=== PATIENT | female | born 1975 | race Caucasian/White ===

== ENCOUNTER 2016-12-02 18:25 | Day surgery (SDC) | payer MEDICAID ==
[2016-12-02] MEDS ORDERED: HYDROmorphone 1 MG/ML Syringe IVPUSH ONE (18:48)
[2016-12-02] MEDS ORDERED: Sodium Chloride 0.9% 1,000 ML IV ONE (18:48)
[2016-12-02] MEDS ORDERED: Ondansetron 4 MG/2 ML SDV IVPUSH ONE (18:48)
[2016-12-02] MEDS ORDERED: Sodium Chloride 0.9% 10 ML Syringe FLUSH PRN ×2 (18:49→20:30)
--- NOTE | 2016-12-02 18:56 | EDM.PDOC ---
ED HPI GI/ABDOMINAL - General Chief Complaint: Abdominal Pain Stated Complaint: LOWER ABDOMINAL PAIN Time Seen by Provider: 12/02/16 18:55 Source of Information: Reports: Patient History Limitations: Reports: No limitations - History of Present Illness INITIAL COMMENTS - FREE TEXT/NARRATIVE: Presents for evaluation and treatment of right lower quadrant abdominal pain. Patient reports the symptoms began last night. She states that the pain has increased in severity. It is localized to the right lower quadrant. reports associated symptoms of nausea. Patient reports on her way to the ER the bumps in the road severely worsen the pain. Any movement makes the pain worse. The patient's LMP was about a week and half ago. Abdominal surgeries include a Location: RLQ - Related Data Allergies/ADRs: Allergies Allergy/AdvReac Type Severity Reaction Status Date / Time morphine Allergy Headache Verified 02/12/16 22:54 Past Medical History - Past Health History Medical/Surgical History: Denies Medical/Surgical History - Past Surgical History Female Surgical History: Reports: section Social & Family History - Family History Family Medical History: Noncontributory - Tobacco Use Smoking Status *Q: Current Every Day Smoker Years of Tobacco use: 20 Packs/Tins Daily: 1 - Recreational Drug Use Recreational Drug Use: No ED ROS GENERAL - Review of Systems Review Of Systems: See Below GI/Abdominal: Reports: Abdominal pain, Nausea ED EXAM, GI/ABD - Physical Exam Exam: See Below Exam Limited By: No limitations General Appearance: alert, WD/WN, moderate distress Respiratory/Chest: no respiratory distress, lungs clear, normal breath sounds Cardiovascular: normal peripheral pulses, no murmur, tachycardia GI/Abdominal: normal bowel sounds, tenderness, guarding, rebound, McBurney's sign Neurological: alert, oriented, normal cognition Psychiatric: normal affect, normal mood Skin Exam: Warm, Dry, Normal color Course - Vital Signs Last Recorded V/S: Last Vital Signs Temp 36.4 C 12/03/16 05:00 Pulse 62 12/03/16 05:00 Resp 16 12/03/16 05:00 BP 98/62 12/03/16 05:00 Pulse Ox 100 12/03/16 05:00 - Orders/Labs/Meds Orders: Active Orders 24 hr Category Date Time Status Patient Status [ADT] Routine ADT 12/02/16 23:01 Active Patient Status [ADT] Routine ADT 12/03/16 00:13 Active Antiembolic Devices [RC] PER UNIT ROUTINE Care 12/02/16 22:14 Active Communication Order [RC] ASDIRECTED Care 12/03/16 00:30 Active Communication Order [RC] ASDIRECTED Care 12/03/16 00:56 Active Communication Order [RC] ROUTINE Care 12/03/16 08:12 Active Communication Order [RC] STAT Care 12/02/16 22:13 Active Cooling Warming Measures [RC] ASDIRECTED Care 12/03/16 00:30 Active Notify Provider [RC] ASDIRECTED Care 12/03/16 00:30 Active Oxygen Therapy [RC] ASDIRECTED Care 12/03/16 00:30 Active Oxygen Therapy [RC] PRN Care 12/03/16 00:13 Active Patient to Empty Bladder [RC] ASDIRECTED Care 12/02/16 22:13 Active Peripheral IV Care [RC] . DIRECTED Care 12/02/16 18:49 Active Pulse Oximetry [RC] ASDIRECTED Care 12/03/16 00:30 Active Ready for Discharge [RC] PER UNIT ROUTINE Care 12/03/16 08:15 Active Up ad [place] [RC] ASDIRECTED Care 12/03/16 00:13 Active Verify Patient Consent Obtain [RC] ASDIRECTED Care 12/02/16 22:13 Active Vital Signs [RC] PER UNIT ROUTINE Care 12/03/16 00:13 Active Vital Signs [RC] Q1HR Care 12/03/16 00:30 Active Regular Diet [DIET] Diet 12/03/16 Breakfast Active Abdomen Pelvis w Cont [CT] Stat Exams 12/02/16 18:48 Taken Acetaminophen/HYDROcodone [[place] 325-5 MG] Med 12/03/16 00:13 Active 1 tab PO Q4H PRN HYDROmorphone [Dilaudid] Med 12/03/16 00:13 Active 0.5 mg IVPUSH Q1H PRN Ondansetron [Zofran] Med 12/03/16 00:13 Active 4 mg IVPUSH Q6H PRN Sodium Chloride 0.9% [Normal Saline] 1,000 ml Med 12/02/16 22:15 Active IV ASDIRECTED Sodium Chloride 0.9% [Normal Saline] 1,000 ml Med 12/03/16 00:15 Active IV ASDIRECTED Sodium Chloride 0.9% [Saline Flush] Med 12/02/16 18:49 Active 10 ml FLUSH ASDIRECTED PRN Sodium Chloride 0.9% [Saline Flush] Med 12/02/16 20:30 Active 10 ml FLUSH ONETIME PRN fentaNYL [Sublimaze] Med 12/03/16 00:31 Active 50 mcg IVPUSH Q5M PRN Peripheral IV Insertion Adult [OM.PC] Routine Oth 12/02/16 18:49 Ordered Schedule Procedure [COMM] Stat Oth 12/02/16 23:02 Ordered Sequential Compression Device [OM.PC] Routine Oth 12/02/16 22:13 Ordered Resuscitation Status Routine Resus Stat 12/02/16 22:13 Ordered Medication Orders Hydrocodone Bitart/Acetaminophen ([place] 325-5 Mg) 1 tab PO Q4H PRN PRN Reason: Pain (moderate 4-6) Last Admin: 12/03/16 11:10 Dose: 1 tab Fentanyl (Sublimaze) 50 mcg IVPUSH Q5M PRN PRN Reason: PAIN Last Admin: 12/03/16 00:20 Dose: 50 mcg Hydromorphone HCl (Dilaudid) 0.5 mg IVPUSH Q1H PRN PRN Reason: Pain (severe 7-10) Sodium Chloride (Normal Saline) 1,000 mls @ 125 mls/hr IV ASDIRECTED [facility] Last Admin: 12/02/16 23:19 Dose: 125 mls/hr Sodium Chloride (Normal Saline) 1,000 mls @ 125 mls/hr IV ASDIRECTED [facility] Ondansetron HCl (Zofran) 4 mg IVPUSH Q6H PRN PRN Reason: Nausea/Vomiting Sodium Chloride (Saline Flush) 10 ml FLUSH ASDIRECTED PRN PRN Reason: Keep Vein Open Last Admin: 12/02/16 19:26 Dose: 10 ml Sodium Chloride (Saline Flush) 10 ml FLUSH ONETIME PRN PRN Reason: IV FLUSH Last Admin: 12/02/16 21:01 Dose: 10 ml Labs: Laboratory Tests 12/02/16 12/02/16 12/02/16 Range/Units 19:00 19:00 19:00 WBC 18.06 H (3.98-10.04) K/mm3 RBC 4.72 (3.98-5.22) M/mm3 Hgb 13.7 (11.2-15.7) gm/L Hct 40.9 (34.1-44.9) % MCV 86.7 (79.4-94.8) fl MCH 29.0 (25.6-32.2) pg MCHC 33.5 (32.2-35.5) g/dl RDW Std Deviation 40.2 (36.4-46.3) fL Plt Count 310 (182-369) K/mm3 MPV 9.8 (9.4-12.3) fl Neutrophils % (Manual) 80 H (40-60) % Band Neutrophils % 0 (0-10) % Lymphocytes % (Manual) 15 L (20-40) % Atypical Lymphs % 0 % Monocytes % (Manual) 5 (2-10) % Eosinophils % (Manual) 0 L (0.7-5.8) % Basophils % (Manual) 0 L (0.1-1.2) Platelet Estimate Adequate Plt Morphology Comment Normal Anisocytosis 1+ slight Macrocytosis 1+ slight Tear Drop Cells 1+ slight Schistocytes 1+ slight RBC Morph Comment Abnormal Sodium 137 (136-145) mEq/L Potassium 3.7 (3.5-5.1) mEq/L Chloride 102 (98-107) mEq/L Carbon Dioxide 21 (21-32) mEq/L Anion Gap 17.7 H (5-15) BUN 14 (7-18) mg/dL Creatinine 0.8 (0.55-1.02) mg/dL Est Cr Clr Drug Dosing 88.38 mL/min Estimated GFR (MDRD) > 60 (>60) mL/min BUN/Creatinine Ratio 17.5 (14-18) Glucose 101 (74-106) mg/dL Calcium 8.5 (8.5-10.1) mg/dL Total Bilirubin 0.5 (0.2-1.0) mg/dL AST 13 L (15-37) U/L ALT 16 (14-59) U/L Alkaline Phosphatase 78 (46-116) U/L C-Reactive Protein 1.7 H* (<1.0) mg/dL Total Protein 7.1 (6.4-8.2) g/dl Albumin 3.6 (3.4-5.0) g/dl Globulin 3.5 gm/dL Albumin/Globulin Ratio 1.0 (1-2) HCG, Qual Negative (NEGATIVE) Urine Color (Yellow) Urine Appearance (Clear) Urine pH (5.0-8.0) Ur Specific [place] (1.005-1.030) Urine Protein (Negative) Urine Glucose (UA) (Negative) Urine Ketones (Negative) Urine Occult Blood (Negative) Urine Nitrite (Negative) Urine Bilirubin (Negative) Urine Urobilinogen (0.2-1.0) Ur Leukocyte Esterase (Negative) Urine RBC (0-5) /hpf Urine WBC (0-5) /hpf Ur Squamous Epith Cells (0-5) /hpf Urine Bacteria (FEW) /hpf Urine Mucus (FEW) /hpf 12/02/16 Range/Units 21:30 WBC (3.98-10.04) K/mm3 RBC (3.98-5.22) M/mm3 Hgb (11.2-15.7) gm/L Hct (34.1-44.9) % MCV (79.4-94.8) fl MCH (25.6-32.2) pg MCHC (32.2-35.5) g/dl RDW Std Deviation (36.4-46.3) fL Plt Count (182-369) K/mm3 MPV (9.4-12.3) fl Neutrophils % (Manual) (40-60) % Band Neutrophils % (0-10) % Lymphocytes % (Manual) (20-40) % Atypical Lymphs % % Monocytes % (Manual) (2-10) % Eosinophils % (Manual) (0.7-5.8) % Basophils % (Manual) (0.1-1.2) Platelet Estimate Plt Morphology Comment Anisocytosis Macrocytosis Tear Drop Cells Schistocytes RBC Morph Comment Sodium (136-145) mEq/L Potassium (3.5-5.1) mEq/L Chloride (98-107) mEq/L Carbon Dioxide (21-32) mEq/L Anion Gap (5-15) BUN (7-18) mg/dL Creatinine (0.55-1.02) mg/dL Est Cr Clr Drug Dosing mL/min Estimated GFR (MDRD) (>60) mL/min BUN/Creatinine Ratio (14-18) Glucose (74-106) mg/dL Calcium (8.5-10.1) mg/dL Total Bilirubin (0.2-1.0) mg/dL AST (15-37) U/L ALT (14-59) U/L Alkaline Phosphatase (46-116) U/L C-Reactive Protein (<1.0) mg/dL Total Protein (6.4-8.2) g/dl Albumin (3.4-5.0) g/dl Globulin gm/dL Albumin/Globulin Ratio (1-2) HCG, Qual (NEGATIVE) Urine Color Yellow (Yellow) Urine Appearance Clear (Clear) Urine pH 6.0 (5.0-8.0) Ur Specific [place] 1.015 (1.005-1.030) Urine Protein Negative (Negative) Urine Glucose (UA) Negative (Negative) Urine Ketones 3+ H (Negative) Urine Occult Blood 1+ H (Negative) Urine Nitrite Positive H (Negative) Urine Bilirubin Negative (Negative) Urine Urobilinogen 0.2 (0.2-1.0) Ur Leukocyte Esterase Negative (Negative) Urine RBC 0-5 (0-5) /hpf Urine WBC 0-5 (0-5) /hpf Ur Squamous Epith Cells 0-5 (0-5) /hpf Urine Bacteria Many H (FEW) /hpf Urine Mucus Few (FEW) /hpf Meds: Medications Generic Name Dose Route Start Last Admin Trade Name Freq PRN Reason Stop Dose Admin Hydrocodone Bitart/Acetaminophen 1 tab 12/03/16 00:13 12/03/16 11:10 [place] 325-5 Mg PO 1 tab Q4H PRN Administration Pain (moderate 4-6) Fentanyl 50 mcg 12/03/16 00:31 12/03/16 00:20 Sublimaze IVPUSH 50 mcg Q5M PRN Administration PAIN Hydromorphone HCl 0.5 mg 12/03/16 00:13 Dilaudid IVPUSH Q1H PRN Pain (severe 7-10) Sodium Chloride 1,000 mls @ 125 mls/hr 12/02/16 22:15 12/02/16 23:19 Normal Saline IV 125 mls/hr ASDIRECTED KIRK Administration Sodium Chloride 1,000 mls @ 125 mls/hr 12/03/16 00:15 Normal Saline IV ASDIRECTED KIRK Ondansetron HCl 4 mg 12/03/16 00:13 Zofran IVPUSH Q6H PRN Nausea/Vomiting Sodium Chloride 10 ml 12/02/16 18:49 12/02/16 19:26 Saline Flush FLUSH 10 ml ASDIRECTED PRN Administration Keep Vein Open Sodium Chloride 10 ml 12/02/16 20:30 12/02/16 21:01 Saline Flush FLUSH 10 ml ONETIME PRN Administration IV FLUSH Discontinued Medications Generic Name Dose Route Start Last Admin Trade Name Bryon PRN Reason Stop Dose Admin Bupivacaine HCl/Epinephrine Bitart Confirm 12/02/16 23:01 12/02/16 23:43 Marcaine 0.5%/Epinephrine 1:200,000 Administered 12/02/16 23:02 11 ml Dose Administration 50 ml .ROUTE .STK-MED ONE Diatrizoate Meglum/Diatrizoate Sod 90 ml 12/02/16 20:30 12/02/16 21:01 Gastrografin 37% PO 12/02/16 20:31 90 ml ONETIME ONE Administration Fentanyl 50 mcg 12/02/16 21:24 12/02/16 21:42 Sublimaze IVPUSH 12/02/16 21:25 50 mcg ONETIME ONE Administration Fentanyl 50 mcg 12/02/16 23:03 12/02/16 23:10 Sublimaze IVPUSH 12/02/16 23:04 50 mcg ONETIME ONE Administration Fentanyl Confirm 12/02/16 23:15 Sublimaze Administered 12/02/16 23:16 Dose 250 mcg .ROUTE .STK-MED ONE Glycopyrrolate Confirm 12/03/16 00:12 Administered 12/03/16 00:13 Dose 1 mg .ROUTE .STK-MED ONE Glycopyrrolate Confirm 12/03/16 00:19 Administered 12/03/16 00:20 Dose 1 mg .ROUTE .STK-MED ONE Hydromorphone HCl 1 mg 12/02/16 18:48 12/02/16 19:23 Dilaudid IVPUSH 12/02/16 18:49 1 mg ONETIME ONE Administration Hydromorphone HCl 0.5 mg 12/02/16 20:28 12/02/16 20:37 Dilaudid IVPUSH 12/02/16 20:29 0.5 mg ONETIME ONE Administration Sodium Chloride 1,000 mls @ 999 mls/hr 12/02/16 18:48 12/02/16 19:20 Normal Saline IV 12/02/16 19:48 999 mls/hr ONETIME ONE Administration Cefoxitin Sodium 2 gm/ Premix 50 mls @ 100 mls/hr 12/02/16 22:30 12/02/16 22: 13 IV 12/02/16 22:59 100 mls/hr ONETIME ONE Administration Lidocaine HCl Confirm 12/02/16 23:15 Xylocaine-Mpf 1% Administered 12/02/16 23:16 Dose 4 mls @ as directed .ROUTE .STK-MED ONE Lactated Ringer's Confirm 12/03/16 00:28 Ringers, Lactated Administered 12/03/16 00:29 Dose 1,000 mls @ as directed .ROUTE .STK-MED ONE Cefoxitin Sodium 2 gm/ Premix 50 mls @ 100 mls/hr 12/03/16 04:00 12/03/16 05: 20 IV 100 mls/hr Q6H KIRK Administration Ertapenem 1 gm/ Sodium 100 mls @ 100 mls/hr 12/03/16 08:12 12/03/16 11:09 Chloride IV 12/03/16 09:11 100 mls/hr ONETIME ONE Administration Iopamidol 125 ml 12/02/16 20:30 12/02/16 21:01 Isovue-300 (61%) IVPUSH 12/02/16 20:31 125 ml ONETIME ONE Administration Ketorolac Tromethamine Confirm 12/03/16 00:10 Toradol Administered 12/03/16 00:11 Dose 30 mg .ROUTE .STK-MED ONE Lidocaine/Epinephrine Confirm 12/02/16 23:00 12/02/16 23:43 Xylocaine 1% With Epinephrine 1:100,000 Administered 12/02/16 23:01 11 ml Dose Administration 20 ml .ROUTE .STK-MED ONE Lorazepam 1 mg 12/03/16 00:24 12/03/16 00:30 Ativan IVPUSH 12/03/16 00:25 1 mg ONETIME ONE Administration Midazolam HCl Confirm 12/02/16 23:15 Versed 1 Mg/Ml Administered 12/02/16 23:16 Dose 2 mg .ROUTE .STK-MED ONE Midazolam HCl 1 mg 12/03/16 01:00 12/03/16 01:13 Versed 1 Mg/Ml IVPUSH 12/03/16 01:01 1 mg ONETIME ONE Administration Neostigmine Methylsulfate Confirm 12/03/16 00:12 Neostigmine Administered 12/03/16 00:13 Dose 5 mg .ROUTE .STK-MED ONE Neostigmine Methylsulfate Confirm 12/03/16 00:19 Neostigmine Administered 12/03/16 00:20 Dose 5 mg .ROUTE .STK-MED ONE Ondansetron HCl 4 mg 12/02/16 18:48 12/02/16 19:21 Zofran IVPUSH 12/02/16 18:49 4 mg ONETIME ONE Administration Ondansetron HCl Confirm 12/02/16 23:14 Zofran Administered 12/02/16 23:15 Dose 4 mg .ROUTE .STK-MED ONE Propofol Confirm 12/02/16 23:14 Diprivan 20 Ml Administered 12/02/16 23:15 Dose 200 mg .ROUTE .STK-MED ONE Rocuronium [place] Confirm 12/02/16 23:14 Zemuron Administered 12/02/16 23:15 Dose 50 mg .ROUTE .STK-MED ONE - Radiology Interpretation Free Text/Narrative:: CT of the abdomen and pelvis with IV and oral contrast impression per Vrad uncomplicated acute appendicitis CT Results Date: 12/02/16 - Re-Assessments/Exams Free Text/Narrative Re-Assessment/Exam: 12/02/16 23:56 The patient's labs have returned. WBC is 18.06, hemoglobin 13.2 and platelets are 310. CRP is 1.7. HCG is negative. Sodium is 137, potassium 3.7 and chloride is 102. Anion gap is 17.7. UA is positive nitrates, 3+ ketones and 1+ blood. Many bacteria seen on microscopy. when the Patient initially arrived she was in a great deal of distress. I was unable to complete a full history and physical but it seemed obvious to me that she more than likely had appendicitis. I ordered 1 mg of IV Dilaudid and 4 mg of Zofran right away. The Dilaudid helped for about an hour she was then given an additional 0.5 mg of IV Dilaudid due to pain. After about another hour she continued to have pains she was given 50 mcg of fentanyl. She continued to have pain so she was given an additional 50 mcgs of fentanyl. She also received a [address] Varma, surgery flight control tower operator, was notified of the CT report and the patient. Unfortunately, the OR had recently taken another case to surgery. He asked that we start 2 g of IV cefoxitin. He will plan on taking her appendix out tonight, as soon as OR is available. Departure - Departure Time of Disposition: 23:00 Disposition: DC/Tfer to Critical Access [facility] Condition: serious Clinical Impression: Appendicitis - My Orders Last 24 Hours: My Active Orders 12/02/16 18:48 Abdomen Pelvis w Cont [CT] Stat 12/02/16 18:49 Peripheral IV Care [RC] . DIRECTED Sodium Chloride 0.9% [Saline Flush] 10 ml FLUSH ASDIRECTED PRN Peripheral IV Insertion Adult [OM.PC] Routine 12/02/16 20:30 Sodium Chloride 0.9% [Saline Flush] 10 ml FLUSH ONETIME PRN 12/02/16 23:01 Patient Status [ADT] Routine 12/02/16 23:02 Schedule Procedure [COMM] Stat - Assessment/Plan Last 24 Hours: My Active Orders 12/02/16 18:48 Abdomen Pelvis w Cont [CT] Stat 12/02/16 18:49 Peripheral IV Care [RC] . DIRECTED Sodium Chloride 0.9% [Saline Flush] 10 ml FLUSH ASDIRECTED PRN Peripheral IV Insertion Adult [OM.PC] Routine 12/02/16 20:30 Sodium Chloride 0.9% [Saline Flush] 10 ml FLUSH ONETIME PRN 12/02/16 23:01 Patient Status [ADT] Routine 12/02/16 23:02 Schedule Procedure [COMM] Stat
[2016-12-02] MEDS ORDERED: HYDROmorphone 0.5 MG/0.5 ML Syringe IVPUSH ONE (20:28)
[2016-12-02] MEDS ORDERED: Iopamidol 612 MG/ML 150 ML Bottle IVPUSH ONE (20:30)
[2016-12-02] MEDS ORDERED: Diatrizoate Meglumine/Diatrizoate Sodium 37% 120 ML Bottle PO ONE (20:30)
[2016-12-02] MEDS ORDERED: fentaNYL 100 MCG/2 ML SDV IVPUSH ONE ×2 (21:24→23:03)
[2016-12-02] MEDS ORDERED: cefOXitin 2 GM in Sodium Chloride 0.9% 100 ML IV ONE ×2 (21:42→22:13)
--- NOTE | 2016-12-02 22:11 | PCM.HP ---
H&P History of Present Illness - General Date of Service: 12/02/16 Source of Information: Patient History Limitations: Reports: No limitations - History of Present Illness Initial Comments - Free Text/Narative: 41-year-old female, experienced severe heartburn yesterday. This was followed by anorexia, nausea, and emesis throughout the evening and night. She went to bed early, and was awakened this afternoon at 5 PM with severe right lower quadrant abdominal pain. She she came to emergency room where she was seen by staff. A CT scan of her abdomen was performed and revealed imaging features consistent with acute appendicitis. I was asked see her in consultation. 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 - Past Surgical History Female Surgical History: Reports: section Neurological Surgical History: Reports: Lumbar spine, Thoracic spine Social & Family History - Family History Family Medical History: Noncontributory - Tobacco Use Smoking Status *Q: Current Every Day Smoker Years of Tobacco use: 20 Packs/Tins Daily: 1 - Caffeine Use Caffeine Use: Reports: Tea Other Caffeine Use: daily - Recreational Drug Use Recreational Drug Use: No H&P Review of Systems - Review of Systems: Review Of Systems: See Below Gastrointestinal: Reports: Abdominal pain, Anorexia Exam - Exam Exam: See Below - Vital Signs Vital Signs: Last Vital Signs Temp Pulse 128 H 12/02/16 18:33 Resp 50 H 12/02/16 18:33 BP Pulse Ox 100 12/02/16 18:33 Weight: 63.503 kg - Exam General: alert, oriented, cooperative, mild distress HEENT: EOMI, Hearing intact Neck: supple, trachea midline Lungs: Clear to auscultation, Normal respiratory effort Cardiovascular: regular rate, regular rhythm, normal S1, normal S2 Abdomen: distention, McBurney's sign (Female) Exam: Deferred Rectal (Female) Exam: Deferred Extremities: normal inspection Skin: warm, dry, intact Psychiatric: alert, normal affect, normal mood, anxious - Patient Data Lab Results last 24 hrs: Laboratory Results - last 24 hr 12/02/16 12/02/16 12/02/16 Range/Units 19:00 19:00 19:00 WBC 18.06 H (3.98-10.04) K/mm3 RBC 4.72 (3.98-5.22) M/mm3 Hgb 13.7 (11.2-15.7) gm/L Hct 40.9 (34.1-44.9) % MCV 86.7 (79.4-94.8) fl MCH 29.0 (25.6-32.2) pg MCHC 33.5 (32.2-35.5) g/dl RDW Std Deviation 40.2 (36.4-46.3) fL Plt Count 310 (182-369) K/mm3 MPV 9.8 (9.4-12.3) fl Neutrophils % (Manual) 80 H (40-60) % Band Neutrophils % 0 (0-10) % Lymphocytes % (Manual) 15 L (20-40) % Atypical Lymphs % 0 % Monocytes % (Manual) 5 (2-10) % Eosinophils % (Manual) 0 L (0.7-5.8) % Basophils % (Manual) 0 L (0.1-1.2) Platelet Estimate Adequate Plt Morphology Comment Normal Anisocytosis 1+ slight Macrocytosis 1+ slight Tear Drop Cells 1+ slight Schistocytes 1+ slight RBC Morph Comment Abnormal Sodium 137 (136-145) mEq/L Potassium 3.7 (3.5-5.1) mEq/L Chloride 102 (98-107) mEq/L Carbon Dioxide 21 (21-32) mEq/L Anion Gap 17.7 H (5-15) BUN 14 (7-18) mg/dL Creatinine 0.8 (0.55-1.02) mg/dL Est Cr Clr Drug Dosing 88.38 mL/min Estimated GFR (MDRD) > 60 (>60) mL/min BUN/Creatinine Ratio 17.5 (14-18) Glucose 101 (74-106) mg/dL Calcium 8.5 (8.5-10.1) mg/dL Total Bilirubin 0.5 (0.2-1.0) mg/dL AST 13 L (15-37) U/L ALT 16 (14-59) U/L Alkaline Phosphatase 78 (46-116) U/L C-Reactive Protein 1.7 H* (<1.0) mg/dL Total Protein 7.1 (6.4-8.2) g/dl Albumin 3.6 (3.4-5.0) g/dl Globulin 3.5 gm/dL Albumin/Globulin Ratio 1.0 (1-2) HCG, Qual Negative (NEGATIVE) Urine Color (Yellow) Urine Appearance (Clear) Urine pH (5.0-8.0) Ur Specific [place] (1.005-1.030) Urine Protein (Negative) Urine Glucose (UA) (Negative) Urine Ketones (Negative) Urine Occult Blood (Negative) Urine Nitrite (Negative) Urine Bilirubin (Negative) Urine Urobilinogen (0.2-1.0) Ur Leukocyte Esterase (Negative) Urine RBC (0-5) /hpf Urine WBC (0-5) /hpf Ur Squamous Epith Cells (0-5) /hpf Urine Bacteria (FEW) /hpf Urine Mucus (FEW) /hpf // Range/Units 21:30 WBC (3.98-10.04) K/mm3 RBC (3.98-5.22) M/mm3 Hgb (11.2-15.7) gm/L Hct (34.1-44.9) % MCV (79.4-94.8) fl MCH (25.6-32.2) pg MCHC (32.2-35.5) g/dl RDW Std Deviation (36.4-46.3) fL Plt Count (182-369) K/mm3 MPV (9.4-12.3) fl Neutrophils % (Manual) (40-60) % Band Neutrophils % (0-10) % Lymphocytes % (Manual) (20-40) % Atypical Lymphs % % Monocytes % (Manual) (2-10) % Eosinophils % (Manual) (0.7-5.8) % Basophils % (Manual) (0.1-1.2) Platelet Estimate Plt Morphology Comment Anisocytosis Macrocytosis Tear Drop Cells Schistocytes RBC Morph Comment Sodium (136-145) mEq/L Potassium (3.5-5.1) mEq/L Chloride (98-107) mEq/L Carbon Dioxide (21-32) mEq/L Anion Gap (5-15) BUN (7-18) mg/dL Creatinine (0.55-1.02) mg/dL Est Cr Clr Drug Dosing mL/min Estimated GFR (MDRD) (>60) mL/min BUN/Creatinine Ratio (14-18) Glucose (74-106) mg/dL Calcium (8.5-10.1) mg/dL Total Bilirubin (0.2-1.0) mg/dL AST (15-37) U/L ALT (14-59) U/L Alkaline Phosphatase (46-116) U/L C-Reactive Protein (<1.0) mg/dL Total Protein (6.4-8.2) g/dl Albumin (3.4-5.0) g/dl Globulin gm/dL Albumin/Globulin Ratio (1-2) HCG, Qual (NEGATIVE) Urine Color Yellow (Yellow) Urine Appearance Clear (Clear) Urine pH 6.0 (5.0-8.0) Ur Specific [place] 1.015 (1.005-1.030) Urine Protein Negative (Negative) Urine Glucose (UA) Negative (Negative) Urine Ketones 3+ H (Negative) Urine Occult Blood 1+ H (Negative) Urine Nitrite Positive H (Negative) Urine Bilirubin Negative (Negative) Urine Urobilinogen 0.2 (0.2-1.0) Ur Leukocyte Esterase Negative (Negative) Urine RBC 0-5 (0-5) /hpf Urine WBC 0-5 (0-5) /hpf Ur Squamous Epith Cells 0-5 (0-5) /hpf Urine Bacteria Many H (FEW) /hpf Urine Mucus Few (FEW) /hpf Result Diagrams: 12/02/16 19:00 12/02/16 19:00 *Q Meaningful Use (ADM) - VTE *Q VTE Criteria *Q: - Stroke *Q Stroke Criteria *Q: - AMI *Q AMI Criteria *Q: - Problem List (1) Acute appendicitis SNOMED Code(s): 64484567 ICD Code: K35.80 - UNSPECIFIED ACUTE APPENDICITIS Status: Acute Priority : High Current Visit: Yes Problem List Initiated/Reviewed/Updated: Yes Orders Last 24hrs: Active Orders 24 hr Category Date Time Status Peripheral IV Care [RC] . DIRECTED Care 12/02/16 18:49 Active Abdomen Pelvis w Cont [CT] Stat Exams 12/02/16 18:48 Taken Sodium Chloride 0.9% [Saline Flush] Med 12/02/16 18:49 Active 10 ml FLUSH ASDIRECTED PRN Sodium Chloride 0.9% [Saline Flush] Med 12/02/16 20:30 Active 10 ml FLUSH ONETIME PRN cefOXitin [Mefoxin] 2 gm Med 12/02/16 21:42 Active Sodium Chloride 0.9% [Normal Saline] 100 ml IV ONETIME Peripheral IV Insertion Adult [OM.PC] Routine Oth 12/02/16 18:49 Ordered Medication Orders Cefoxitin Sodium 2 gm/ Sodium (Chloride) 100 mls @ 200 mls/hr IV ONETIME ONE Stop: 12/02/16 22:11 Sodium Chloride (Saline Flush) 10 ml FLUSH ASDIRECTED PRN PRN Reason: Keep Vein Open Last Admin: 12/02/16 19:26 Dose: 10 ml Sodium Chloride (Saline Flush) 10 ml FLUSH ONETIME PRN PRN Reason: IV FLUSH Last Admin: 12/02/16 21:01 Dose: 10 ml Assessment/Plan Comment:: imp: Acute appendicitis. Needs, laparoscopic appendectomy. plan: Laparoscopic possible open appendectomy. The benefits, and risks of the procedure, including, bleeding, infection, as well as bowel injury was explained to the patient. She has asked me to proceed as soon as possible.
[2016-12-02] MEDS ORDERED: Sodium Chloride 0.9% 1,000 ML IV SCH (22:15)
[2016-12-02] MEDS ORDERED: cefOXitin 2 GM in Premix Bag 1 BAG IV ONE (22:30)
[2016-12-02] MEDS ORDERED: Lidocaine 1% with EPINEPHrine 1:100,000 20 ML MDV ONE (23:00)
[2016-12-02] MEDS ORDERED: Bupivacaine 0.5%/EPINEPHrine 1:200,000 50 ML MDV ONE (23:01)
[2016-12-02] MEDS ORDERED: Ondansetron 4 MG/2 ML SDV ONE (23:14)
[2016-12-02] MEDS ORDERED: Rocuronium 50 MG/5 ML Vial ONE (23:14)
[2016-12-02] MEDS ORDERED: Propofol 200 MG/20 ML SDV ONE (23:14)
[2016-12-02] MEDS ORDERED: Midazolam 1 MG/ML 2 ML SDV ONE (23:15)
[2016-12-02] MEDS ORDERED: fentaNYL 250 MCG/5 ML SDV ONE (23:15)
[2016-12-02] MEDS ORDERED: Lidocaine 1% 4 ML ONE (23:15)
[2016-12-03] MEDS ORDERED: Ketorolac 30 MG/ML SDV ONE (00:10)
[2016-12-03] MEDS ORDERED: Neostigmine Methylsulfate 1 MG/ML 5 ML Syringe ONE ×2 (00:12→00:19)
[2016-12-03] MEDS ORDERED: HYDROmorphone 0.5 MG/0.5 ML Syringe IVPUSH PRN (00:13)
[2016-12-03] MEDS ORDERED: Acetaminophen/HYDROcodone 325-5 MG Tab PO PRN (00:13)
[2016-12-03] MEDS ORDERED: Ondansetron 4 MG/2 ML SDV IVPUSH PRN (00:13)
[2016-12-03] MEDS ORDERED: Sodium Chloride 0.9% 1,000 ML IV SCH (00:15)
[2016-12-03] MEDS ORDERED: cefOXitin 2 GM in Sodium Chloride 0.9% 100 ML IV SCH (00:15)
--- NOTE | 2016-12-03 00:16 | PCM.OPNOTE ---
[id number] appendectomy Findings: Acute suppurative appendicitis Pre Op Diagnosis: Acute appendicitis Post-Op Diagnosis: Acute suppurative appendicitis Anesthesia Technique: General ET tube, Local Primary Surgeon: Bill Varma Pathology: Appendix EBL in mLs: 5 Complications: None Condition: Good Free Text/Narrative:: After adequate general endotracheal tube anesthesia was obtained the patient's abdomen was prepped and draped in the usual fashion for a laparoscopic appendectomy. A supraumbilical incision was made with a 15 blade after local analgesia. The abdomen was cannulated with a 12 mm port. Pneumoperitoneum was obtained. 5 mm ports were placed in the suprapubic region and the left lower quadrant. The omentum was covering the appendix. The appendix had exudate on its serosal surface. I made a window with Endo Michel in the meso appendix. I fired the stapler across the base and 2 loads across the mesentery. The appendix was placed in the bag and removed via the umbilicus. I irrigated out the right lower quadrant with saline. The abdomen was decannulated under direct vision with no bleeding from the port sites. I closed the umbilical site with a [id number] Vicryl. The subcutaneous tissues and skin were closed with Vicryl as well. Steri-Strips and gauze were used for the dressing after additional local was given. She was extubated and taken to the recovery room. Lineman photographs were taken for the patient and for the record. There were no procedural complications.
[2016-12-03] MEDS ORDERED: LORazepam 2 MG/ML MDV IVPUSH ONE (00:24)
[2016-12-03] MEDS ORDERED: Lactated Ringers 1,000 ML ONE (00:28)
[2016-12-03] MEDS ORDERED: fentaNYL 250 MCG/5 ML SDV IVPUSH PRN (00:31)
--- NOTE | 2016-12-03 00:32 | PCM.POSTAN ---
POST ANESTHESIA ASSESSMENT - MENTAL STATUS Mental Status: alert, oriented - VITAL SIGNS Pulse Rate: 96 SaO2: 97 Resp Rate: 14 Blood Pressure: 127/71 Temperature: 36.2 C - RESPIRATORY Respiratory Status: respiratory rate WNL, airway patent, O2 saturation stable, supplemental oxygen - CARDIOVASCULAR CV Status: pulse rate WNL, blood pressure stable - GASTROINTESTINAL GI Status: no symptoms - PAIN Pain Score: 4 - POST OP HYDRATION Hydration Status: adequate & stable - OBSERVATIONS Free Text/Narrative:: no anesthesia complications noted
--- NOTE | 2016-12-03 00:34 | PCM.PREANE ---
Preanesthetic Assessment - Anesthesia/Transfusion/Family Hx Anesthesia History: Prior Anesthesia Without Reaction Family History of Anesthesia Reaction: No - Review of Systems General: Fatigue Pulmonary: No Symptoms Cardiovascular: No Symptoms Gastrointestinal: Abdominal pain, Vomiting Neurological: No Symptoms Other: Reports: None - Physical Assessment NPO Status Date: 12/01/16 NPO Status Time: 20:30 Pulse: 96 O2 Sat by Pulse Oximetry: 97 Respiratory Rate: 14 Blood Pressure: 127/71 Temperature: 36.2 C Vital Signs: Last Vital Signs Temp 36.2 C 12/03/16 00:32 Pulse 96 12/03/16 00:32 Resp 14 12/03/16 00:32 BP 127/71 12/03/16 00:32 Pulse Ox 97 12/03/16 00:32 Height: 1.68 m Weight: 63.503 kg ASA Class: 2E Mental Status: Alert & Oriented x3 Airway Class: Mallampati = 1 Dentition: Reports: Broken Tooth/Teeth, Caries Thyro-Mental Finger Breadths: 3 Mouth Opening Finger Breadths: 3 ROM/Head Extension: Full Lungs: Clear to auscultation, Normal respiratory effort Cardiovascular: Regular Rate, Regular Rhythm, No Murmurs - Lab Values: Laboratory Last Values WBC 18.06 K/mm3 (3.98-10.04) H 12/02/16 19:00 RBC 4.72 M/mm3 (3.98-5.22) 12/02/16 19:00 Hgb 13.7 gm/L (11.2-15.7) 12/02/16 19:00 Hct 40.9 % (34.1-44.9) 12/02/16 19:00 MCV 86.7 fl (79.4-94.8) 12/02/16 19:00 MCH 29.0 pg (25.6-32.2) 12/02/16 19:00 MCHC 33.5 g/dl (32.2-35.5) 12/02/16 19:00 RDW Std Deviation 40.2 fL (36.4-46.3) 12/02/16 19:00 Plt Count 310 K/mm3 (182-369) 12/02/16 19:00 MPV 9.8 fl (9.4-12.3) 12/02/16 19:00 Neutrophils % (Manual) 80 % (40-60) H 12/02/16 19:00 Band Neutrophils % 0 % (0-10) 12/02/16 19:00 Lymphocytes % (Manual) 15 % (20-40) L 12/02/16 19:00 Atypical Lymphs % 0 % 12/02/16 19:00 Monocytes % (Manual) 5 % (2-10) 12/02/16 19:00 Eosinophils % (Manual) 0 % (0.7-5.8) L 12/02/16 19:00 Basophils % (Manual) 0 (0.1-1.2) L 12/02/16 19:00 Platelet Estimate Adequate 12/02/16 19:00 Plt Morphology Comment Normal 12/02/16 19:00 Anisocytosis 1+ slight 12/02/16 19:00 Macrocytosis 1+ slight 12/02/16 19:00 Tear Drop Cells 1+ slight 12/02/16 19:00 Schistocytes 1+ slight 12/02/16 19:00 RBC Morph Comment Abnormal 12/02/16 19:00 Sodium 137 mEq/L (136-145) 12/02/16 19:00 Potassium 3.7 mEq/L (3.5-5.1) 12/02/16 19:00 Chloride 102 mEq/L (98-107) 12/02/16 19:00 Carbon Dioxide 21 mEq/L (21-32) 12/02/16 19:00 Anion Gap 17.7 (5-15) H 12/02/16 19:00 BUN 14 mg/dL (7-18) 12/02/16 19:00 Creatinine 0.8 mg/dL (0.55-1.02) 12/02/16 19:00 Est Cr Clr Drug Dosing 88.38 mL/min 12/02/16 19:00 Estimated GFR (MDRD) > 60 mL/min (>60) 12/02/16 19:00 BUN/Creatinine Ratio 17.5 (14-18) 12/02/16 19:00 Glucose 101 mg/dL (74-106) 12/02/16 19:00 Calcium 8.5 mg/dL (8.5-10.1) 12/02/16 19:00 Total Bilirubin 0.5 mg/dL (0.2-1.0) 12/02/16 19:00 AST 13 U/L (15-37) L 12/02/16 19:00 ALT 16 U/L (14-59) 12/02/16 19:00 Alkaline Phosphatase 78 U/L (46-116) 12/02/16 19:00 C-Reactive Protein 1.7 mg/dL (<1.0) H* 12/02/16 19:00 Total Protein 7.1 g/dl (6.4-8.2) 12/02/16 19:00 Albumin 3.6 g/dl (3.4-5.0) 12/02/16 19:00 Globulin 3.5 gm/dL 12/02/16 19:00 Albumin/Globulin Ratio 1.0 (1-2) 12/02/16 19:00 HCG, Qual Negative (NEGATIVE) 12/02/16 19:00 Urine Color Yellow (Yellow) 12/02/16 21:30 Urine Appearance Clear (Clear) 12/02/16 21:30 Urine pH 6.0 (5.0-8.0) 12/02/16 21:30 Ur Specific [place] 1.015 (1.005-1.030) 12/02/16 21:30 Urine Protein Negative (Negative) 12/02/16 21:30 Urine Glucose (UA) Negative (Negative) 12/02/16 21:30 Urine Ketones 3+ (Negative) H 12/02/16 21:30 Urine Occult Blood 1+ (Negative) H 12/02/16 21:30 Urine Nitrite Positive (Negative) H 12/02/16 21:30 Urine Bilirubin Negative (Negative) 12/02/16 21:30 Urine Urobilinogen 0.2 (0.2-1.0) 12/02/16 21:30 Ur Leukocyte Esterase Negative (Negative) 12/02/16 21:30 Urine RBC 0-5 /hpf (0-5) 12/02/16 21:30 Urine WBC 0-5 /hpf (0-5) 12/02/16 21:30 Ur Squamous Epith Cells 0-5 /hpf (0-5) 12/02/16 21:30 Urine Bacteria Many /hpf (FEW) H 12/02/16 21:30 Urine Mucus Few /hpf (FEW) 12/02/16 21:30 - Allergies Allergies/Adverse Reactions: Allergies Allergy/AdvReac Type Severity Reaction Status Date / Time morphine Allergy Headache Verified 02/12/16 22:54 - Blood Blood Available: No Product(s) Available: None - Anesthesia Plan Pre-Op Medication Ordered: None - Acknowledgements Anesthesia Type Planned: General Anesthesia Pt an Appropriate Candidate for the Planned Anesthesia: Yes Alternatives and Risks of Anesthesia Discussed w Pt/Guardian: Yes Pt/Guardian Understands and Agrees with Anesthesia Plan: Yes PreAnesthesia Questionnaire - Past Health History Medical/Surgical History: Denies 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: , Other (see below) Other OB/BYN History: Csection Musculoskeletal History: Reports: Back pain, chronic, Fracture Neurological History: Reports: Seizure Other Neuro History: 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 - Past Surgical History Female Surgical History: Reports: section - SUBSTANCE USE Smoking Status *Q: Current Every Day Smoker Tobacco Use Within Last Twelve Months: Cigarettes Recreational Drug Use History: No - CURRENT (IN HOUSE) MEDS Current Meds: Current Medications Hydrocodone Bitart/Acetaminophen ([place] 325-5 Mg) 1 tab PO Q4H PRN PRN Reason: Pain (moderate 4-6) Fentanyl (Sublimaze) 50 mcg IVPUSH Q5M PRN PRN Reason: PAIN Hydromorphone HCl (Dilaudid) 0.5 mg IVPUSH Q1H PRN PRN Reason: Pain (severe 7-10) Sodium Chloride (Normal Saline) 1,000 mls @ 125 mls/hr IV ASDIRECTED [facility] Last Admin: 12/02/16 23:19 Dose: 125 mls/hr Sodium Chloride (Normal Saline) 1,000 mls @ 125 mls/hr IV ASDIRECTED [facility] Cefoxitin Sodium 2 gm/ Premix 50 mls @ 100 mls/hr IV Q6H [facility] Ondansetron HCl (Zofran) 4 mg IVPUSH Q6H PRN PRN Reason: Nausea/Vomiting Sodium Chloride (Saline Flush) 10 ml FLUSH ASDIRECTED PRN PRN Reason: Keep Vein Open Last Admin: 12/02/16 19:26 Dose: 10 ml Sodium Chloride (Saline Flush) 10 ml FLUSH ONETIME PRN PRN Reason: IV FLUSH Last Admin: 12/02/16 21:01 Dose: 10 ml Discontinued Medications Bupivacaine HCl/Epinephrine Bitart (Marcaine 0.5%/Epinephrine 1:200,000) Confirm Administered Dose 50 ml .ROUTE .K-MED ONE Stop: 12/02/16 23:02 Last Admin: 12/02/16 23:43 Dose: 11 ml Diatrizoate Meglum/Diatrizoate Sod (Gastrografin 37%) 90 ml PO ONETIME ONE Stop: 12/02/16 20:31 Last Admin: 12/02/16 21:01 Dose: 90 ml Fentanyl (Sublimaze) 50 mcg IVPUSH ONETIME ONE Stop: 12/02/16 21:25 Last Admin: 12/02/16 21:42 Dose: 50 mcg Fentanyl (Sublimaze) 50 mcg IVPUSH ONETIME ONE Stop: 12/02/16 23:04 Last Admin: 12/02/16 23:10 Dose: 50 mcg Fentanyl (Sublimaze) Confirm Administered Dose 250 mcg .ROUTE .STK-MED ONE Stop: 12/02/16 23:16 Glycopyrrolate () Confirm Administered Dose 1 mg .ROUTE .STK-MED ONE Stop: 12/03/16 00:13 Glycopyrrolate () Confirm Administered Dose 1 mg .ROUTE .STK-MED ONE Stop: 12/03/16 00:20 Hydromorphone HCl (Dilaudid) 1 mg IVPUSH ONETIME ONE Stop: 12/02/16 18:49 Last Admin: 12/02/16 19:23 Dose: 1 mg Hydromorphone HCl (Dilaudid) 0.5 mg IVPUSH ONETIME ONE Stop: 12/02/16 20:29 Last Admin: 12/02/16 20:37 Dose: 0.5 mg Sodium Chloride (Normal Saline) 1,000 mls @ 999 mls/hr IV ONETIME ONE Stop: 12/02/16 19:48 Last Admin: 12/02/16 19:20 Dose: 999 mls/hr Cefoxitin Sodium 2 gm/ Premix 50 mls @ 100 mls/hr IV ONETIME ONE Stop: 12/02/16 22:59 Last Admin: 12/02/16 22:13 Dose: 100 mls/hr Lidocaine HCl (Xylocaine-Mpf 1%) Confirm Administered Dose 4 mls @ as directed .ROUTE .STK-MED ONE Stop: 12/02/16 23:16 Lactated Ringer's (Ringers, Lactated) Confirm Administered Dose 1,000 mls @ as directed .ROUTE .STK-MED ONE Stop: 12/03/16 00:29 Iopamidol (Isovue-300 (61%)) 125 ml IVPUSH ONETIME ONE Stop: 12/02/16 20:31 Last Admin: 12/02/16 21:01 Dose: 125 ml Ketorolac Tromethamine (Toradol) Confirm Administered Dose 30 mg .ROUTE .STK- MED ONE Stop: 12/03/16 00:11 Lidocaine/Epinephrine (Xylocaine 1% With Epinephrine 1:100,000) Confirm Administered Dose 20 ml .ROUTE .STK-MED ONE Stop: 12/02/16 23:01 Last Admin: 12/02/16 23:43 Dose: 11 ml Lorazepam (Ativan) 1 mg IVPUSH ONETIME ONE Stop: 12/03/16 00:25 Last Admin: 12/03/16 00:30 Dose: 1 mg Midazolam HCl (Versed 1 Mg/Ml) Confirm Administered Dose 2 mg .ROUTE .STK-MED ONE Stop: 12/02/16 23:16 Neostigmine Methylsulfate (Neostigmine) Confirm Administered Dose 5 mg .ROUTE .STK-MED ONE Stop: 12/03/16 00:13 Neostigmine Methylsulfate (Neostigmine) Confirm Administered Dose 5 mg .ROUTE .STK-MED ONE Stop: 12/03/16 00:20 Ondansetron HCl (Zofran) 4 mg IVPUSH ONETIME ONE Stop: 12/02/16 18:49 Last Admin: 12/02/16 19:21 Dose: 4 mg Ondansetron HCl (Zofran) Confirm Administered Dose 4 mg .ROUTE .STK-MED ONE Stop: 12/02/16 23:15 Propofol (Diprivan 20 Ml) Confirm Administered Dose 200 mg .ROUTE .STK-MED ONE Stop: 12/02/16 23:15 Rocuronium [place] (Zemuron) Confirm Administered Dose 50 mg .ROUTE .STK-MED ONE Stop: 12/02/16 23:15 Preanesthetic Assessment - REVIEW OF SYSTEMS Constitutional: Reports: no symptoms FIELD SERVICE SPECIALIST: Reports: no symptoms Respiratory: Reports: no symptoms Cardiovascular: Reports: no symptoms Other: Reports: None - PHYSICAL ASSESSMENT HR: 96 O2 Sat by Pulse Oximetry: 97 RR: 14 BP: 127/71 Temp: 36.2 C Vital Signs: Last Vital Signs Temp 36.2 C 12/03/16 00:32 Pulse 96 12/03/16 00:32 Resp 14 12/03/16 00:32 BP 127/71 12/03/16 00:32 Pulse Ox 97 12/03/16 00:32 Height: 1.68 m Weight: 63.503 kg NPO Status Date: 12/01/16 NPO Status Time: 20:30 - LAB Values: Laboratory Last Values WBC 18.06 K/mm3 (3.98-10.04) H 12/02/16 19:00 RBC 4.72 M/mm3 (3.98-5.22) 12/02/16 19:00 Hgb 13.7 gm/L (11.2-15.7) 12/02/16 19:00 Hct 40.9 % (34.1-44.9) 12/02/16 19:00 MCV 86.7 fl (79.4-94.8) 12/02/16 19:00 MCH 29.0 pg (25.6-32.2) 12/02/16 19:00 MCHC 33.5 g/dl (32.2-35.5) 12/02/16 19:00 RDW Std Deviation 40.2 fL (36.4-46.3) 12/02/16 19:00 Plt Count 310 K/mm3 (182-369) 12/02/16 19:00 MPV 9.8 fl (9.4-12.3) 12/02/16 19:00 Neutrophils % (Manual) 80 % (40-60) H 12/02/16 19:00 Band Neutrophils % 0 % (0-10) 12/02/16 19:00 Lymphocytes % (Manual) 15 % (20-40) L 12/02/16 19:00 Atypical Lymphs % 0 % 12/02/16 19:00 Monocytes % (Manual) 5 % (2-10) 12/02/16 19:00 Eosinophils % (Manual) 0 % (0.7-5.8) L 12/02/16 19:00 Basophils % (Manual) 0 (0.1-1.2) L 12/02/16 19:00 Platelet Estimate Adequate 12/02/16 19:00 Plt Morphology Comment Normal 12/02/16 19:00 Anisocytosis 1+ slight 12/02/16 19:00 Macrocytosis 1+ slight 12/02/16 19:00 Tear Drop Cells 1+ slight 12/02/16 19:00 Schistocytes 1+ slight 12/02/16 19:00 RBC Morph Comment Abnormal 12/02/16 19:00 Sodium 137 mEq/L (136-145) 12/02/16 19:00 Potassium 3.7 mEq/L (3.5-5.1) 12/02/16 19:00 Chloride 102 mEq/L (98-107) 12/02/16 19:00 Carbon Dioxide 21 mEq/L (21-32) 12/02/16 19:00 Anion Gap 17.7 (5-15) H 12/02/16 19:00 BUN 14 mg/dL (7-18) 12/02/16 19:00 Creatinine 0.8 mg/dL (0.55-1.02) 12/02/16 19:00 Est Cr Clr Drug Dosing 88.38 mL/min 12/02/16 19:00 Estimated GFR (MDRD) > 60 mL/min (>60) 12/02/16 19:00 BUN/Creatinine Ratio 17.5 (14-18) 12/02/16 19:00 Glucose 101 mg/dL (74-106) 12/02/16 19:00 Calcium 8.5 mg/dL (8.5-10.1) 12/02/16 19:00 Total Bilirubin 0.5 mg/dL (0.2-1.0) 12/02/16 19:00 AST 13 U/L (15-37) L 12/02/16 19:00 ALT 16 U/L (14-59) 12/02/16 19:00 Alkaline Phosphatase 78 U/L (46-116) 12/02/16 19:00 C-Reactive Protein 1.7 mg/dL (<1.0) H* 12/02/16 19:00 Total Protein 7.1 g/dl (6.4-8.2) 12/02/16 19:00 Albumin 3.6 g/dl (3.4-5.0) 12/02/16 19:00 Globulin 3.5 gm/dL 12/02/16 19:00 Albumin/Globulin Ratio 1.0 (1-2) 12/02/16 19:00 HCG, Qual Negative (NEGATIVE) 12/02/16 19:00 Urine Color Yellow (Yellow) 12/02/16 21:30 Urine Appearance Clear (Clear) 12/02/16 21:30 Urine pH 6.0 (5.0-8.0) 12/02/16 21:30 Ur Specific [place] 1.015 (1.005-1.030) 12/02/16 21:30 Urine Protein Negative (Negative) 12/02/16 21:30 Urine Glucose (UA) Negative (Negative) 12/02/16 21:30 Urine Ketones 3+ (Negative) H 12/02/16 21:30 Urine Occult Blood 1+ (Negative) H 12/02/16 21:30 Urine Nitrite Positive (Negative) H 12/02/16 21:30 Urine Bilirubin Negative (Negative) 12/02/16 21:30 Urine Urobilinogen 0.2 (0.2-1.0) 12/02/16 21:30 Ur Leukocyte Esterase Negative (Negative) 12/02/16 21:30 Urine RBC 0-5 /hpf (0-5) 12/02/16 21:30 Urine WBC 0-5 /hpf (0-5) 12/02/16 21:30 Ur Squamous Epith Cells 0-5 /hpf (0-5) 12/02/16 21:30 Urine Bacteria Many /hpf (FEW) H 12/02/16 21:30 Urine Mucus Few /hpf (FEW) 12/02/16 21:30 - ALLERGIES Allergies/Adverse Reactions: Allergies Allergy/AdvReac Type Severity Reaction Status Date / Time morphine Allergy Headache Verified 02/12/16 22:54
[2016-12-03] MEDS ORDERED: Midazolam 1 MG/ML 2 ML SDV IVPUSH ONE (01:00)
[2016-12-03] MEDS ORDERED: cefOXitin 2 GM in Premix Bag 1 BAG IV SCH (04:00)
[2016-12-03] MEDS ORDERED: Ertapenem 1 GM in Sodium Chloride 0.9% 100 ML IV ONE (08:12)
--- NOTE | 2016-12-03 08:12 | PCM.SURGPN ---
- General Info Date of Service: 12/03/16 POD#: 1 Functional Status: Reports: pain controlled, tolerating diet, ambulating, urinating - Patient Data Vitals - most recent: Last Vital Signs Temp 36.4 C 12/03/16 05:00 Pulse 62 12/03/16 05:00 Resp 16 12/03/16 05:00 BP 98/62 12/03/16 05:00 Pulse Ox 100 12/03/16 05:00 Weight - most recent: 63.503 kg I&O - last 24 hours: Intake & Output 12/02/16 12/03/16 12/03/16 22:59 06:59 14:59 Intake Total 1090 Output Total 350 Balance 740 Lab Results last 24 hrs: Laboratory Results - last 24 hr 12/02/16 12/02/16 12/02/16 Range/Units 19:00 19:00 19:00 WBC 18.06 H (3.98-10.04) K/mm3 RBC 4.72 (3.98-5.22) M/mm3 Hgb 13.7 (11.2-15.7) gm/L Hct 40.9 (34.1-44.9) % MCV 86.7 (79.4-94.8) fl MCH 29.0 (25.6-32.2) pg MCHC 33.5 (32.2-35.5) g/dl RDW Std Deviation 40.2 (36.4-46.3) fL Plt Count 310 (182-369) K/mm3 MPV 9.8 (9.4-12.3) fl Neutrophils % (Manual) 80 H (40-60) % Band Neutrophils % 0 (0-10) % Lymphocytes % (Manual) 15 L (20-40) % Atypical Lymphs % 0 % Monocytes % (Manual) 5 (2-10) % Eosinophils % (Manual) 0 L (0.7-5.8) % Basophils % (Manual) 0 L (0.1-1.2) Platelet Estimate Adequate Plt Morphology Comment Normal Anisocytosis 1+ slight Macrocytosis 1+ slight Tear Drop Cells 1+ slight Schistocytes 1+ slight RBC Morph Comment Abnormal Sodium 137 (136-145) mEq/L Potassium 3.7 (3.5-5.1) mEq/L Chloride 102 (98-107) mEq/L Carbon Dioxide 21 (21-32) mEq/L Anion Gap 17.7 H (5-15) BUN 14 (7-18) mg/dL Creatinine 0.8 (0.55-1.02) mg/dL Est Cr Clr Drug Dosing 88.38 mL/min Estimated GFR (MDRD) > 60 (>60) mL/min BUN/Creatinine Ratio 17.5 (14-18) Glucose 101 (74-106) mg/dL Calcium 8.5 (8.5-10.1) mg/dL Total Bilirubin 0.5 (0.2-1.0) mg/dL AST 13 L (15-37) U/L ALT 16 (14-59) U/L Alkaline Phosphatase 78 (46-116) U/L C-Reactive Protein 1.7 H* (<1.0) mg/dL Total Protein 7.1 (6.4-8.2) g/dl Albumin 3.6 (3.4-5.0) g/dl Globulin 3.5 gm/dL Albumin/Globulin Ratio 1.0 (1-2) HCG, Qual Negative (NEGATIVE) Urine Color (Yellow) Urine Appearance (Clear) Urine pH (5.0-8.0) Ur Specific [place] (1.005-1.030) Urine Protein (Negative) Urine Glucose (UA) (Negative) Urine Ketones (Negative) Urine Occult Blood (Negative) Urine Nitrite (Negative) Urine Bilirubin (Negative) Urine Urobilinogen (0.2-1.0) Ur Leukocyte Esterase (Negative) Urine RBC (0-5) /hpf Urine WBC (0-5) /hpf Ur Squamous Epith Cells (0-5) /hpf Urine Bacteria (FEW) /hpf Urine Mucus (FEW) /hpf 12/02/16 Range/Units 21:30 WBC (3.98-10.04) K/mm3 RBC (3.98-5.22) M/mm3 Hgb (11.2-15.7) gm/L Hct (34.1-44.9) % MCV (79.4-94.8) fl MCH (25.6-32.2) pg MCHC (32.2-35.5) g/dl RDW Std Deviation (36.4-46.3) fL Plt Count (182-369) K/mm3 MPV (9.4-12.3) fl Neutrophils % (Manual) (40-60) % Band Neutrophils % (0-10) % Lymphocytes % (Manual) (20-40) % Atypical Lymphs % % Monocytes % (Manual) (2-10) % Eosinophils % (Manual) (0.7-5.8) % Basophils % (Manual) (0.1-1.2) Platelet Estimate Plt Morphology Comment Anisocytosis Macrocytosis Tear Drop Cells Schistocytes RBC Morph Comment Sodium (136-145) mEq/L Potassium (3.5-5.1) mEq/L Chloride (98-107) mEq/L Carbon Dioxide (21-32) mEq/L Anion Gap (5-15) BUN (7-18) mg/dL Creatinine (0.55-1.02) mg/dL Est Cr Clr Drug Dosing mL/min Estimated GFR (MDRD) (>60) mL/min BUN/Creatinine Ratio (14-18) Glucose (74-106) mg/dL Calcium (8.5-10.1) mg/dL Total Bilirubin (0.2-1.0) mg/dL AST (15-37) U/L ALT (14-59) U/L Alkaline Phosphatase (46-116) U/L C-Reactive Protein (<1.0) mg/dL Total Protein (6.4-8.2) g/dl Albumin (3.4-5.0) g/dl Globulin gm/dL Albumin/Globulin Ratio (1-2) HCG, Qual (NEGATIVE) Urine Color Yellow (Yellow) Urine Appearance Clear (Clear) Urine pH 6.0 (5.0-8.0) Ur Specific [place] 1.015 (1.005-1.030) Urine Protein Negative (Negative) Urine Glucose (UA) Negative (Negative) Urine Ketones 3+ H (Negative) Urine Occult Blood 1+ H (Negative) Urine Nitrite Positive H (Negative) Urine Bilirubin Negative (Negative) Urine Urobilinogen 0.2 (0.2-1.0) Ur Leukocyte Esterase Negative (Negative) Urine RBC 0-5 (0-5) /hpf Urine WBC 0-5 (0-5) /hpf Ur Squamous Epith Cells 0-5 (0-5) /hpf Urine Bacteria Many H (FEW) /hpf Urine Mucus Few (FEW) /hpf Med Orders - Current: Current Medications Hydrocodone Bitart/Acetaminophen ([place] 325-5 Mg) 1 tab PO Q4H PRN PRN Reason: Pain (moderate 4-6) Fentanyl (Sublimaze) 50 mcg IVPUSH Q5M PRN PRN Reason: PAIN Last Admin: 12/03/16 00:20 Dose: 50 mcg Hydromorphone HCl (Dilaudid) 0.5 mg IVPUSH Q1H PRN PRN Reason: Pain (severe 7-10) Sodium Chloride (Normal Saline) 1,000 mls @ 125 mls/hr IV ASDIRECTED [facility] Last Admin: 12/02/16 23:19 Dose: 125 mls/hr Sodium Chloride (Normal Saline) 1,000 mls @ 125 mls/hr IV ASDIRECTED [facility] Cefoxitin Sodium 2 gm/ Premix 50 mls @ 100 mls/hr IV Q6H [facility] Last Admin: 12/03/16 05:20 Dose: 100 mls/hr Ondansetron HCl (Zofran) 4 mg IVPUSH Q6H PRN PRN Reason: Nausea/Vomiting Sodium Chloride (Saline Flush) 10 ml FLUSH ASDIRECTED PRN PRN Reason: Keep Vein Open Last Admin: 12/02/16 19:26 Dose: 10 ml Sodium Chloride (Saline Flush) 10 ml FLUSH ONETIME PRN PRN Reason: IV FLUSH Last Admin: 12/02/16 21:01 Dose: 10 ml Discontinued Medications Bupivacaine HCl/Epinephrine Bitart ([place] 0.5%/Epinephrine 1:200,000) Confirm Administered Dose 50 ml .ROUTE .STK-MED ONE Stop: 12/02/16 23:02 Last Admin: 12/02/16 23:43 Dose: 11 ml Diatrizoate Meglum/Diatrizoate Sod (Gastrografin 37%) 90 ml PO ONETIME ONE Stop: 12/02/16 20:31 Last Admin: 12/02/16 21:01 Dose: 90 ml Fentanyl (Sublimaze) 50 mcg IVPUSH ONETIME ONE Stop: 12/02/16 21:25 Last Admin: 12/02/16 21:42 Dose: 50 mcg Fentanyl (Sublimaze) 50 mcg IVPUSH ONETIME ONE Stop: 12/02/16 23:04 Last Admin: 12/02/16 23:10 Dose: 50 mcg Fentanyl (Sublimaze) Confirm Administered Dose 250 mcg .ROUTE .STK-MED ONE Stop: 12/02/16 23:16 Glycopyrrolate () Confirm Administered Dose 1 mg .ROUTE .STK-MED ONE Stop: 12/03/16 00:13 Glycopyrrolate () Confirm Administered Dose 1 mg .ROUTE .STK-MED ONE Stop: 12/03/16 00:20 Hydromorphone HCl (Dilaudid) 1 mg IVPUSH ONETIME ONE Stop: 12/02/16 18:49 Last Admin: 12/02/16 19:23 Dose: 1 mg Hydromorphone HCl (Dilaudid) 0.5 mg IVPUSH ONETIME ONE Stop: 12/02/16 20:29 Last Admin: 12/02/16 20:37 Dose: 0.5 mg Sodium Chloride (Normal Saline) 1,000 mls @ 999 mls/hr IV ONETIME ONE Stop: 12/02/16 19:48 Last Admin: 12/02/16 19:20 Dose: 999 mls/hr Cefoxitin Sodium 2 gm/ Premix 50 mls @ 100 mls/hr IV ONETIME ONE Stop: 12/02/16 22:59 Last Admin: 12/02/16 22:13 Dose: 100 mls/hr Lidocaine HCl (Xylocaine-Mpf 1%) Confirm Administered Dose 4 mls @ as directed .ROUTE .STK-MED ONE Stop: 12/02/16 23:16 Lactated Ringer's (Ringers, Lactated) Confirm Administered Dose 1,000 mls @ as directed .ROUTE .STK-MED ONE Stop: 12/03/16 00:29 Iopamidol (Isovue-300 (61%)) 125 ml IVPUSH ONETIME ONE Stop: 12/02/16 20:31 Last Admin: 12/02/16 21:01 Dose: 125 ml Ketorolac Tromethamine (Toradol) Confirm Administered Dose 30 mg .ROUTE .STK- MED ONE Stop: 12/03/16 00:11 Lidocaine/Epinephrine (Xylocaine 1% With Epinephrine 1:100,000) Confirm Administered Dose 20 ml .ROUTE .STK-MED ONE Stop: 12/02/16 23:01 Last Admin: 12/02/16 23:43 Dose: 11 ml Lorazepam (Ativan) 1 mg IVPUSH ONETIME ONE Stop: 12/03/16 00:25 Last Admin: 12/03/16 00:30 Dose: 1 mg Midazolam HCl (Versed 1 Mg/Ml) Confirm Administered Dose 2 mg .ROUTE .STK-MED ONE Stop: 12/02/16 23:16 Midazolam HCl (Versed 1 Mg/Ml) 1 mg IVPUSH ONETIME ONE Stop: 12/03/16 01:01 Last Admin: 12/03/16 01:13 Dose: 1 mg Neostigmine Methylsulfate (Neostigmine) Confirm Administered Dose 5 mg .ROUTE .STK-MED ONE Stop: 12/03/16 00:13 Neostigmine Methylsulfate (Neostigmine) Confirm Administered Dose 5 mg .ROUTE .STK-MED ONE Stop: 12/03/16 00:20 Ondansetron HCl (Zofran) 4 mg IVPUSH ONETIME ONE Stop: 12/02/16 18:49 Last Admin: 12/02/16 19:21 Dose: 4 mg Ondansetron HCl (Zofran) Confirm Administered Dose 4 mg .ROUTE .STK-MED ONE Stop: 12/02/16 23:15 Propofol (Diprivan 20 Ml) Confirm Administered Dose 200 mg .ROUTE .STK-MED ONE Stop: 12/02/16 23:15 Rocuronium [place] (Zemuron) Confirm Administered Dose 50 mg .ROUTE .STK-MED ONE Stop: 12/02/16 23:15 - Exam Wound/Incisions: drainage Abdomen: soft - Problem List & Annotations (1) Acute appendicitis SNOMED Code(s): 48440689 Code(s): K35.80 - UNSPECIFIED ACUTE APPENDICITIS Status: Acute Priority: High Current Visit: Yes - Problem List Review Problem List Initiated/Reviewed/Updated: Yes - My Orders Last 24 Hours: Active Orders 24 hr Category Date Time Status Patient Status [ADT] Routine ADT 12/02/16 23:01 Active Patient Status [ADT] Routine ADT 12/03/16 00:13 Active Antiembolic Devices [RC] PER UNIT ROUTINE Care 12/02/16 22:14 Active Communication Order [RC] ASDIRECTED Care 12/03/16 00:30 Active Communication Order [RC] ASDIRECTED Care 12/03/16 00:56 Active Communication Order [RC] STAT Care 12/02/16 22:13 Active Cooling Warming Measures [RC] ASDIRECTED Care 12/03/16 00:30 Active Notify Provider [RC] ASDIRECTED Care 12/03/16 00:30 Active Oxygen Therapy [RC] ASDIRECTED Care 12/03/16 00:30 Active Oxygen Therapy [RC] PRN Care 12/03/16 00:13 Active Patient to Empty Bladder [RC] ASDIRECTED Care 12/02/16 22:13 Active Peripheral IV Care [RC] . DIRECTED Care 12/02/16 18:49 Active Pulse Oximetry [RC] ASDIRECTED Care 12/03/16 00:30 Active Up ad [place] [RC] ASDIRECTED Care 12/03/16 00:13 Active Verify Patient Consent Obtain [RC] ASDIRECTED Care 12/02/16 22:13 Active Vital Signs [RC] PER UNIT ROUTINE Care 12/03/16 00:13 Active Vital Signs [RC] Q1HR Care 12/03/16 00:30 Active Regular Diet [DIET] Diet 12/03/16 Breakfast Active Abdomen Pelvis w Cont [CT] Stat Exams 12/02/16 18:48 Taken Acetaminophen/HYDROcodone [[place] 325-5 MG] Med 12/03/16 00:13 Active 1 tab PO Q4H PRN HYDROmorphone [Dilaudid] Med 12/03/16 00:13 Active 0.5 mg IVPUSH Q1H PRN Ondansetron [Zofran] Med 12/03/16 00:13 Active 4 mg IVPUSH Q6H PRN Sodium Chloride 0.9% [Normal Saline] 1,000 ml Med 12/02/16 22:15 Active IV ASDIRECTED Sodium Chloride 0.9% [Normal Saline] 1,000 ml Med 12/03/16 00:15 Active IV ASDIRECTED Sodium Chloride 0.9% [Saline Flush] Med 12/02/16 18:49 Active 10 ml FLUSH ASDIRECTED PRN Sodium Chloride 0.9% [Saline Flush] Med 12/02/16 20:30 Active 10 ml FLUSH ONETIME PRN cefOXitin [Mefoxin in Dextrose,Iso-Osm 2 GM/50 ML] 2 gm Med 12/03/16 04:00 Active Premix Bag 1 bag IV Q6H fentaNYL [Sublimaze] Med 12/03/16 00:31 Active 50 mcg IVPUSH Q5M PRN Peripheral IV Insertion Adult [OM.PC] Routine Oth 12/02/16 18:49 Ordered Schedule Procedure [COMM] Stat Oth 12/02/16 23:02 Ordered Sequential Compression Device [OM.PC] Routine Oth 12/02/16 22:13 Ordered Resuscitation Status Routine Resus Stat 12/02/16 22:13 Ordered Medication Orders Hydrocodone Bitart/Acetaminophen ([place] 325-5 Mg) 1 tab PO Q4H PRN PRN Reason: Pain (moderate 4-6) Fentanyl (Sublimaze) 50 mcg IVPUSH Q5M PRN PRN Reason: PAIN Last Admin: 12/03/16 00:20 Dose: 50 mcg Hydromorphone HCl (Dilaudid) 0.5 mg IVPUSH Q1H PRN PRN Reason: Pain (severe 7-10) Sodium Chloride (Normal Saline) 1,000 mls @ 125 mls/hr IV ASDIRECTED [facility] Last Admin: 12/02/16 23:19 Dose: 125 mls/hr Sodium Chloride (Normal Saline) 1,000 mls @ 125 mls/hr IV ASDIRECTED [facility] Cefoxitin Sodium 2 gm/ Premix 50 mls @ 100 mls/hr IV Q6H [facility] Last Admin: 12/03/16 05:20 Dose: 100 mls/hr Ondansetron HCl (Zofran) 4 mg IVPUSH Q6H PRN PRN Reason: Nausea/Vomiting Sodium Chloride (Saline Flush) 10 ml FLUSH ASDIRECTED PRN PRN Reason: Keep Vein Open Last Admin: 12/02/16 19:26 Dose: 10 ml Sodium Chloride (Saline Flush) 10 ml FLUSH ONETIME PRN PRN Reason: IV FLUSH Last Admin: 12/02/16 21:01 Dose: 10 ml - Assessment Assessment (Free Text/Narrative):: Ready for discharge Will discharge today after one more dose of intravenous antibiotics.
[2016-12-03 11:15] VITALS: BP 94/61
--- NOTE | 2016-12-05 08:33 | CT ---
CT abdomen and pelvis Technique: Multiple axial sections were obtained from above the dome of the diaphragm inferiorly through the pubic symphysis. Intravenous and oral contrast was utilized. Delayed images were also obtained through the bladder. Comparison: Previous noncontrast CT study of the abdomen and pelvis performed as a ureteral stone protocol. Findings: Dilated appendix is seen with mild surrounding inflammatory change compatible with appendicitis. Visualized lung bases are clear. Liver shows no focal parenchymal abnormality. Spleen appears within normal limits. Adrenal glands show no nodule. Left kidney shows a 3 mm cortical cyst. Kidneys are otherwise unremarkable. Pancreas shows no discrete mass. Main pancreatic duct is seen which is felt to be incidental. Gallbladder shows no calcified gallstones. Aorta shows no aneurysmal dilatation. No retroperitoneal adenopathy or mesenteric abnormalities are seen. No pelvic mass or adenopathy is seen. Minimal fluid noted within the cul-de-sac felt to be incidental. Bone window settings were reviewed which appear within normal limits for the patient's age. Delayed images show contrast within the bladder. Impression: 1. Findings compatible with appendicitis. 2. Other incidental findings as noted above. Diagnostic code #5 Agree with preliminary report issued by [facility] (preliminary report dictated on 12/02/16, 10:35 PM Central Time)
--- NOTE | 2016-12-06 08:49 | PCM.DCSUM1 ---
Discharge Summary - Hospital Course Free Text/Narrative:: uneventful - Discharge Data Discharge Date: 12/03/16 Discharge Disposition: Home, Self-Care 01 Condition: Good - Discharge Diagnosis/Problem(s) (1) Acute appendicitis SNOMED Code(s): 79362796 ICD Code: K35.80 - UNSPECIFIED ACUTE APPENDICITIS Status: Resolved Priority: High - Patient Summary/Data Operative Procedure(s) Performed: Laparoscopic appendectomy Complications: none Hospital Course: uneventful - Patient Instructions Diet: Usual Diet as Tolerated Activity: As Tolerated, Rest and Relax Today Driving: Do Not Drive (48 hours) Showering/Bathing: May Shower in 3 Days Wound/Incision Care: Keep Operative Site/Wound Site Clean and Dry Notify Provider of: Fever - Discharge Plan Prescriptions/Med Rec: oxyCODONE HCl/Acetaminophen [Percocet 5-325 mg Tablet] 1 - 2 each PO Q6HR PRN # 24 tablet PRN Reason: Pain (Moderate 4-6) Home Medications: Home Meds oxyCODONE HCl/Acetaminophen [Percocet 5-325 mg Tablet] 1 - 2 each PO Q6HR PRN # 24 tablet 12/03/16 [Rx] Patient Handouts: Laparoscopic Appendectomy, Adult, Care After Forms: ED Department Discharge Referrals: Bill Varma MD [Physician] - 12/08/16 (Please call on Monday to schedule a follow-up appointment with Dr. Varma as soon as 1 week. ) - Discharge Summary/Plan Comment DC Time >30 min.: No - Patient Data Vitals - Most Recent: Last Vital Signs Temp 37.2 C 12/03/16 11:14 Pulse 60 12/03/16 11:14 Resp 16 12/03/16 11:14 BP 94/61 12/03/16 11:14 Pulse Ox 98 12/03/16 11:14 Weight - Most Recent: 63.503 kg Med Orders - Current: Current Medications Discontinued Medications Hydrocodone Bitart/Acetaminophen ([place] 325-5 Mg) 1 tab PO Q4H PRN PRN Reason: Pain (moderate 4-6) Last Admin: 12/03/16 11:10 Dose: 1 tab Bupivacaine HCl/Epinephrine Bitart (Marcaine 0.5%/Epinephrine 1:200,000) Confirm Administered Dose 50 ml .ROUTE .STK-MED ONE Stop: 12/02/16 23:02 Last Admin: 12/02/16 23:43 Dose: 11 ml Diatrizoate Meglum/Diatrizoate Sod (Gastrografin 37%) 90 ml PO ONETIME ONE Stop: 12/02/16 20:31 Last Admin: 12/02/16 21:01 Dose: 90 ml Fentanyl (Sublimaze) 50 mcg IVPUSH ONETIME ONE Stop: 12/02/16 21:25 Last Admin: 12/02/16 21:42 Dose: 50 mcg Fentanyl (Sublimaze) 50 mcg IVPUSH ONETIME ONE Stop: 12/02/16 23:04 Last Admin: 12/02/16 23:10 Dose: 50 mcg Fentanyl (Sublimaze) Confirm Administered Dose 250 mcg .ROUTE .STK-MED ONE Stop: 12/02/16 23:16 Fentanyl (Sublimaze) 50 mcg IVPUSH Q5M PRN PRN Reason: PAIN Last Admin: 12/03/16 00:20 Dose: 50 mcg Glycopyrrolate () Confirm Administered Dose 1 mg .ROUTE .STK-MED ONE Stop: 12/03/16 00:13 Glycopyrrolate () Confirm Administered Dose 1 mg .ROUTE .STK-MED ONE Stop: 12/03/16 00:20 Hydromorphone HCl (Dilaudid) 1 mg IVPUSH ONETIME ONE Stop: 12/02/16 18:49 Last Admin: 12/02/16 19:23 Dose: 1 mg Hydromorphone HCl (Dilaudid) 0.5 mg IVPUSH ONETIME ONE Stop: 12/02/16 20:29 Last Admin: 12/02/16 20:37 Dose: 0.5 mg Hydromorphone HCl (Dilaudid) 0.5 mg IVPUSH Q1H PRN PRN Reason: Pain (severe 7-10) Sodium Chloride (Normal Saline) 1,000 mls @ 999 mls/hr IV ONETIME ONE Stop: 12/02/16 19:48 Last Admin: 12/02/16 19:20 Dose: 999 mls/hr Sodium Chloride (Normal Saline) 1,000 mls @ 125 mls/hr IV ASDIRECTED [facility] Last Admin: 12/02/16 23:19 Dose: 125 mls/hr Cefoxitin Sodium 2 gm/ Premix 50 mls @ 100 mls/hr IV ONETIME ONE Stop: 12/02/16 22:59 Last Admin: 12/02/16 22:13 Dose: 100 mls/hr Lidocaine HCl (Xylocaine-Mpf 1%) Confirm Administered Dose 4 mls @ as directed .ROUTE .STK-MED ONE Stop: 12/02/16 23:16 Sodium Chloride (Normal Saline) 1,000 mls @ 125 mls/hr IV ASDIRECTED [facility] Lactated Ringer's (Ringers, Lactated) Confirm Administered Dose 1,000 mls @ as directed .ROUTE .STK-MED ONE Stop: 12/03/16 00:29 Cefoxitin Sodium 2 gm/ Premix 50 mls @ 100 mls/hr IV Q6H [facility] Last Admin: 12/03/16 05:20 Dose: 100 mls/hr Ertapenem 1 gm/ Sodium (Chloride) 100 mls @ 100 mls/hr IV ONETIME ONE Stop: 12/03/16 09:11 Last Admin: 12/03/16 11:09 Dose: 100 mls/hr Iopamidol (Isovue-300 (61%)) 125 ml IVPUSH ONETIME ONE Stop: 12/02/16 20:31 Last Admin: 12/02/16 21:01 Dose: 125 ml Ketorolac Tromethamine (Toradol) Confirm Administered Dose 30 mg .ROUTE .STK- MED ONE Stop: 12/03/16 00:11 Lidocaine/Epinephrine (Xylocaine 1% With Epinephrine 1:100,000) Confirm Administered Dose 20 ml .ROUTE .STK-MED ONE Stop: 12/02/16 23:01 Last Admin: 12/02/16 23:43 Dose: 11 ml Lorazepam (Ativan) 1 mg IVPUSH ONETIME ONE Stop: 12/03/16 00:25 Last Admin: 12/03/16 00:30 Dose: 1 mg Midazolam HCl (Versed 1 Mg/Ml) Confirm Administered Dose 2 mg .ROUTE .STK-MED ONE Stop: 12/02/16 23:16 Midazolam HCl (Versed 1 Mg/Ml) 1 mg IVPUSH ONETIME ONE Stop: 12/03/16 01:01 Last Admin: 12/03/16 01:13 Dose: 1 mg Neostigmine Methylsulfate (Neostigmine) Confirm Administered Dose 5 mg .ROUTE .STK-MED ONE Stop: 12/03/16 00:13 Neostigmine Methylsulfate (Neostigmine) Confirm Administered Dose 5 mg .ROUTE .STK-MED ONE Stop: 12/03/16 00:20 Ondansetron HCl (Zofran) 4 mg IVPUSH ONETIME ONE Stop: 12/02/16 18:49 Last Admin: 12/02/16 19:21 Dose: 4 mg Ondansetron HCl (Zofran) Confirm Administered Dose 4 mg .ROUTE .STK-MED ONE Stop: 12/02/16 23:15 Ondansetron HCl (Zofran) 4 mg IVPUSH Q6H PRN PRN Reason: Nausea/Vomiting Propofol (Diprivan 20 Ml) Confirm Administered Dose 200 mg .ROUTE .STK-MED ONE Stop: 12/02/16 23:15 Rocuronium [place] (Zemuron) Confirm Administered Dose 50 mg .ROUTE .STK-MED ONE Stop: 12/02/16 23:15 Sodium Chloride (Saline Flush) 10 ml FLUSH ASDIRECTED PRN PRN Reason: Keep Vein Open Last Admin: 12/02/16 19:26 Dose: 10 ml Sodium Chloride (Saline Flush) 10 ml FLUSH ONETIME PRN PRN Reason: IV FLUSH Last Admin: 12/02/16 21:01 Dose: 10 ml *Q Meaningful Use (DIS) - VTE *Q VTE Criteria *Q: - Stroke *Q Stroke Criteria *Q: - AMI *Q AMI Criteria *Q:
== END 2016-12-03 13:37 | disposition home or self-care (01) ==
LOC: JD.ED 18:25 → JD.SDS 23:07
PROVIDERS: ATTEND Surgery
PROC: 0DTJ4ZZ Resection of Appendix, Percutaneous Endoscopic Approach (ICD-10-PCS; principal; 2016-12-02)
DX: K35.80 Unspecified acute appendicitis (principal); Z88.5 Allergy status to narcotic agent; F17.210 Nicotine dependence, cigarettes, uncomplicated
CPT/HCPCS: 36415; 44970; 74177; 80053; 81001; 84703; 85025; 86140; 96361; 96365; 96375; 96376; 99285; A9270; J0694; J1170; J1335; J1885; J2060; J2250; J2405; J2710; J3010; J7030; J7040; J7050; J7120; Q9963; Q9967; 00840; 99284; J2704

== ENCOUNTER 2018-06-04 12:05 | Emergency (ER) | payer MEDICAID ==
[2018-06-04 12:19] VITALS: BP 119/82
[2018-06-04] MEDS ORDERED: Sodium Chloride 0.9% 10 ML Syringe FLUSH PRN (12:41)
[2018-06-04] MEDS ORDERED: Sodium Chloride 0.9% 1,000 ML IV SCH (12:45)
--- NOTE | 2018-06-04 13:09 | CT ---
Head CT Technique: Multiple axial sections through the brain were obtained. Intravenous contrast was not utilized. Comparison: No prior intracranial imaging. Findings: Ventricles along with basal cisterns and sulci over the convexities are within normal limits for the patient's age. No abnormal parenchymal densities are seen. No evidence of intracranial hemorrhage. No midline shift or mass effect is seen. Bone window settings were obtained which shows the visualized sinuses to appear clear. No acute calvarial abnormality is appreciated. Impression: 1. Nothing acute is appreciated on noncontrast head CT exam. Diagnostic code #1
--- NOTE | 2018-06-04 13:40 | EDM.PDOC ---
ED HPI GENERAL MEDICAL PROBLEM - General Chief Complaint: Chest Pain Stated Complaint: CHEST TIGHTNESS/L SHOULDER PAIN Time Seen by Provider: 06/04/18 12:14 Source of Information: Reports: Patient, RN Notes Reviewed - History of Present Illness INITIAL COMMENTS - FREE TEXT/NARRATIVE: 42-year-old female comes in with nonspecific chest discomfort. She states that her chest does feel heavy, tight and this is been going on many days. She does feel somewhat short of breath. She has what she describes as a "smoker's cough" , apparently not worse than usual. No recent fever or chills. He has been having intermittent paresthesias of her left hand and foot for many weeks somewhat worse the past few days. She also does get headaches which she describes as a chronic problem. No recent sore throat sinus congestion. Has had some chills but no definite fever. No abdominal pain at this time, no nausea or vomiting. She does not have known history for diabetes, hypertension or other known medical problems. Left Arm Pain Score (Numeric/FACES): 4 - Related Data Allergies Allergy/AdvReac Type Severity Reaction Status Date / Time morphine Allergy Headache Verified 06/04/18 12:19 Home Meds: Home Meds . 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 - Past Surgical History GI Surgical History: Reports: Appendectomy Female Surgical History: Reports: Section Neurological Surgical History: Reports: Lumbar Spine, Thoracic Spine Musculoskeletal Surgical History: Reports: Other (See Below) Social & Family History - Family History Family Medical History: Noncontributory - Tobacco Use Smoking Status *Q: Current Every Day Smoker Years of Tobacco use: 20 Packs/Tins Daily: 2 Used Tobacco, but Quit: No Second Hand Smoke Exposure: No - Caffeine Use Caffeine Use: Reports: Coffee, Tea Other Caffeine Use: daily - Recreational Drug Use Recreational Drug Use: No ED ROS GENERAL - Review of Systems Review Of Systems: See Below Constitutional: Reports: Chills. Denies: Fever HEENT: Denies: Rhinitis, Sinus Problem, Throat Pain, Vertigo, Vision Change Respiratory: Reports: Shortness of Breath, Cough. Denies: Pleuritic Chest Pain , Sputum, Hemoptysis Cardiovascular: Reports: Chest Pain GI/Abdominal: Denies: Abdominal Pain, Nausea, Vomiting Musculoskeletal: Denies: Back Pain Skin: Denies: Rash Neurological: Reports: Dizziness, Headache, Numbness, Tingling. Denies: Trouble Speaking ED EXAM, GENERAL - Physical Exam Exam: See Below General Appearance: Anxious, Moderate Distress Eye Exam: Bilateral Eye: PERRL Nose: Normal Inspection Throat/Mouth: Normal Inspection, Normal Oropharynx Head: No: Atraumatic, Facial Swelling Neck: Supple, Full Range of Motion Respiratory/Chest: Respiratory Distress. No: Rales, Rhonchi, Wheezing Cardiovascular: Regular Rate, Rhythm GI/Abdominal: Soft, Non-Tender. No: Guarding Extremities: Normal Inspection, Normal Range of Motion. No: Pedal Edema, Leg Pain Neurological: Alert, Oriented, Other (No motor weakness, question and sensation mildly decreased left hand, finger to nose relatively normal) Skin Exam: Warm, Dry, Normal Color EKG INTERPRETATION EKG Date: 06/04/18 Rhythm: NSR Bowie: Normal P-Wave: Present QRS: Normal ST-T: Normal Course - Vital Signs Last Recorded V/S: Last Vital Signs Temp 98 F 06/04/18 12:15 Pulse 85 06/04/18 12:15 Resp 19 06/04/18 12:15 BP 119/82 06/04/18 12:15 Pulse Ox 100 06/04/18 12:15 Orthostatic Blood Pressure [ 118/89 Standing] Orthostatic Blood Pressure [ 105/75 Sitting] Orthostatic Blood Pressure [ 114/67 Supine] - Orders/Labs/Meds Orders: Active Orders 24 hr Category Date Time Status EKG 12 Lead [EKG Documentation Completion] [RC] STAT Care 06/04/18 12:38 Active Peripheral IV Care [RC] . DIRECTED Care 06/04/18 12:41 Active Peripheral IV Insertion Adult [OM.PC] Stat Oth 06/04/18 12:41 Ordered Labs: Laboratory Tests 06/04/18 06/04/18 Range/Units 13:24 13:24 WBC 9.53 (3.98-10.04) K/mm3 RBC 4.57 (3.98-5.22) M/mm3 Hgb 12.8 (11.2-15.7) gm/L Hct 39.3 (34.1-44.9) % MCV 86.0 (79.4-94.8) fl MCH 28.0 (25.6-32.2) pg MCHC 32.6 (32.2-35.5) g/dl RDW Std Deviation 42.4 (36.4-46.3) fL Plt Count 329 (182-369) K/mm3 MPV 9.5 (9.4-12.3) fl Neut % (Auto) 72.7 H (34.0-71.1) % Lymph % (Auto) 20.0 (19.3-51.7) % Dupage % (Auto) 5.9 (4.7-12.5) % Eos % (Auto) 0.9 (0.7-5.8) Baso % (Auto) 0.4 (0.1-1.2) % Neut # (Auto) 6.92 H (1.56-6.13) K/mm3 Lymph # (Auto) 1.91 (1.18-3.74) K/mm3 Dupage # (Auto) 0.56 H (0.24-0.36) K/mm3 Eos # (Auto) 0.09 (0.04-0.36) K/mm3 Baso # (Auto) 0.04 (0.01-0.08) K/mm3 Sodium 138 (136-145) mEq/L Potassium 3.3 L (3.5-5.1) mEq/L Chloride 105 (98-107) mEq/L Carbon Dioxide 25 (21-32) mEq/L Anion Gap 11.3 (5-15) BUN 12 (7-18) mg/dL Creatinine 0.7 (0.55-1.02) mg/dL Est Cr Clr Drug Dosing 99.45 mL/min Estimated GFR (MDRD) > 60 (>60) mL/min BUN/Creatinine Ratio 17.1 (14-18) Glucose 92 (74-106) mg/dL Calcium 8.5 (8.5-10.1) mg/dL Total Bilirubin 0.4 (0.2-1.0) mg/dL AST 17 (15-37) U/L ALT 18 (14-59) U/L Alkaline Phosphatase 74 (46-116) U/L Total Protein 7.4 (6.4-8.2) g/dl Albumin 3.7 (3.4-5.0) g/dl Globulin 3.7 gm/dL Albumin/Globulin Ratio 1.0 (1-2) Meds: Medications Discontinued Medications Generic Name Dose Route Start Last Admin Trade Name Freq PRN Reason Stop Dose Admin Sodium Chloride 1,000 mls @ 150 mls/hr 06/04/18 12:45 06/04/18 13:15 Normal Saline IV 150 mls/hr ASDIRECTED KIRK Administration Sodium Chloride 10 ml 06/04/18 12:41 06/04/18 13:16 Saline Flush FLUSH 10 ml ASDIRECTED PRN Administration Keep Vein Open - Re-Assessments/Exams Free Text/Narrative Re-Assessment/Exam: 06/04/18 14:07. Labs have come back normal, head CT normal. With the increasing frequency of paresthesias left hand and foot MRI of head will be appropriate. We 'll get her scheduled for that. 06/04/18 18:41. MRI did not show some minimal area of increase signal subcortical white matter, frontal regionbut not a typical location for MS, felt to be incidental, can be seen with chronic migraine Headaches which does have hx of. See Radiology report for details. Departure - Departure Time of Disposition: 14:08 Disposition: Home, Self-Care 01 Clinical Impression: Atypical chest pain, Paresthesias Instructions: Nonspecific Chest Pain, [id number] Referrals: Nakia Grullon NP [Primary Care Provider] - Forms: ED Department Discharge Additional Instructions: Drink plenty of water to maintain hydration, try to eat regular meals and snacks , try begin a healthy exercise program, even just walking outdoors 2 or 3 times a day as best you can, follow up with Nakia Grullon Monday as planned. - My Orders Last 24 Hours: My Active Orders 06/04/18 12:38 EKG 12 Lead [EKG Documentation Completion] [RC] STAT 06/04/18 12:41 Peripheral IV Care [RC] . DIRECTED Peripheral IV Insertion Adult [OM.PC] Stat - Assessment/Plan Last 24 Hours: My Active Orders 06/04/18 12:38 EKG 12 Lead [EKG Documentation Completion] [RC] STAT 06/04/18 12:41 Peripheral IV Care [RC] . DIRECTED Peripheral IV Insertion Adult [OM.PC] Stat
--- NOTE | 2018-06-04 16:45 | MR ---
MRI brain Technique: T1 and T2 FLAIR sagittal; T2, T2 FLAIR, T1 and diffusion axial; T1 FLAIR coronal images were obtained. Comparison: Prior head CT study performed earlier on 06/04/18 (12:47 PM). Findings: Several minimal areas of increased signal are noted within the subcortical white matter within the frontal region. No abnormal signal seen within the periventricular white matter or within other portions of the brain. No midline shift or mass effect is seen. Normal signal void is seen within the major cerebral arteries within the skull base. No acute diffusion abnormalities are seen. Impression: 1. Several minimal areas of increased signal within the subcortical white matter within the frontal region. This does not have the typical location for multiple sclerosis. These types of signal can be seen with chronic migraine headaches as well as other minimal demyelinating process, this abnormal signal is felt to be incidental. 2. MRI study of the brain is otherwise unremarkable. Diagnostic code #2
--- NOTE | 2018-06-04 17:51 | CR ---
Chest: Portable view of the chest was obtained. Comparison: No prior chest x-ray. Heart size and mediastinum are normal. Lungs are clear. Minimal scoliosis is noted within the spine. Impression: 1. Nothing acute is seen on two-view chest x-ray. Diagnostic code #1
== END 2018-06-04 17:23 | disposition home or self-care (01) ==
LOC: JD.ED 12:05
DX: R07.89 Other chest pain (principal); R20.2 Paresthesia of skin; F17.210 Nicotine dependence, cigarettes, uncomplicated; Z88.5 Allergy status to narcotic agent
CPT/HCPCS: 36415; 70450; 70551; 71045; 80053; 85025; 93005; 96360; 96361; 99285; J7040; J7050; 93010; 99284-25

== ENCOUNTER 2019-02-23 17:18 | Emergency (ER) | payer MEDICAID ==
[2019-02-23 17:26] VITALS: BP 123/94
--- NOTE | 2019-02-23 17:44 | EDM.PDOC ---
ED HPI GENERAL MEDICAL PROBLEM - General Chief Complaint: Bite:Animal, Insect Stated Complaint: INSECT BITE Time Seen by Provider: 02/23/19 17:30 Source of Information: Reports: Patient, Family (Son) History Limitations: Reports: No Limitations - History of Present Illness INITIAL COMMENTS - FREE TEXT/NARRATIVE: 43-year-old female attends the ED with concerns of a possible insect sting to the volar aspect of her left forearm. She is appreciated bruising to this area and what appears to be a punctum in the center of the wound. Her boyfriend was convinced over the phone that this represents an insect sting and is concerned about a brown recluse spider bite. That brown recluse spiders in [place] very small and very rare. There are a few out [place] in [facility]. On examination it with a central-like punctum. However there is no induration around the punctum to suggest an insect sting or bite. It appears to be more like a pinch type injury. She thinks about it she believes that the lid on the washing machine did come down and hit her but she is not exactly sure what part of her arm was injured. Should reassured that it certainly is not an insect sting or bite and there will be no long-term consequences. Daily cleanse with soap and water apply topical antibiotic for 3 days shows localized bruising which is very superficial Onset: Unknown/Unsure (The amount of bruising appears to be 3 days old.) Duration: Day(s): Location: Reports: Upper Extremity, Left (Mid left volar forearm.) Quality: Reports: Other (Has no pain) Severity: Mild Improves with: Reports: None Worsens with: Reports: None Context: Denies: Activity, Exercise, Lifting, Sick Contact, Trauma, Other Associated Symptoms: Denies: No Other Symptoms, Confusion, Chest Pain, Cough, cough w sputum, Diaphoresis, Fever/Chills, Headaches, Loss of Appetite, Malaise , Nausea/Vomiting, Rash, Seizure, Shortness of Breath, Syncope, Weakness Treatments MANAGER PLANT: Reports: Other (see below) (None.) - Related Data Allergies Allergy/AdvReac Type Severity Reaction Status Date / Time bee venom protein (honey bee) Allergy Swelling Verified 02/23/19 17:26 morphine Allergy Headache Verified 06/04/18 12:19 onion Allergy Swelling Verified 02/23/19 17:26 Home Meds: Home Meds . 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 - Past Surgical History GI Surgical History: Reports: Appendectomy Female Surgical History: Reports: Section Neurological Surgical History: Reports: Lumbar Spine, Thoracic Spine Musculoskeletal Surgical History: Reports: Other (See Below) Social & Family History - Family History Family Medical History: Noncontributory - Tobacco Use Smoking Status *Q: Current Every Day Smoker Years of Tobacco use: 20 Packs/Tins Daily: 1 - Caffeine Use Caffeine Use: Reports: Coffee Other Caffeine Use: daily - Recreational Drug Use Recreational Drug Use: No - Living Situation & Occupation Living situation: Reports: Single Occupation: Unemployed ED ROS GENERAL - Review of Systems Review Of Systems: See Below Constitutional: Reports: No Symptoms HEENT: Reports: No Symptoms Respiratory: Reports: No Symptoms Cardiovascular: Reports: No Symptoms Endocrine: Reports: No Symptoms GI/Abdominal: Reports: No Symptoms : Reports: No Symptoms Skin: Reports: Bruising Neurological: Reports: No Symptoms (Volar left forearm) Psychiatric: Reports: No Symptoms Hematologic/Lymphatic: Reports: No Symptoms Immunologic: Reports: No Symptoms ED EXAM, ANIMAL BITE - Physical Exam Exam: See Below Exam Limited By: No Limitations General Appearance: Alert, WD/WN, Anxious, Moderate Distress Extremities: Other (Evaluation was limited to the volar aspect of her left forearm. There is superficial ecchymoses approximately 4 cm in diameter mid left forearm. There is an area that resembles a punctum in the middle of this wound and on palpation there is no induration or swelling to suggest an insect sting or bite. It appears to be more of a pinched type injury with a superficial loss of skin in the center of the wound. Patient reassured there is no evidence of particular a brown recluse spider bite or other insect bite at this time. Suggest daily cleanse and topical antibiotic for 3 days. Bruise will take 7-10 days to go away completely) Neurological: Alert, Oriented, CN II-XII Intact, Normal Cognition Psychiatric: Anxious Skin Exam: Ecchymosis (4 cm ecchymoses volar aspect left forearm), Other Course - Vital Signs Last Recorded V/S: Last Vital Signs Temp Pulse 93 02/23/19 17:23 Resp 18 02/23/19 17:23 BP 123/94 H 02/23/19 17:23 Pulse Ox 100 02/23/19 17:23 - Radiology Interpretation Free Text/Narrative:: 43-year-old female presents to the ED with a area of ecchymoses and were. Appears to be a punctum like injury to the center of the wound volar aspect of mid left forearm. She can't remember hurting it per se. Her boyfriend was concerned that she had suffered a insect sting such as a spider bite. On examination the bruising is very superficial and there does appear to be a punctum like injury to the center of the bruising. However there is no induration or swelling to suggest an insect sting. It appears to be more like a pins type injury with superficial abrasion and contusion to the surrounding soft tissues. She can make a full fist without any problem there is no evidence of a deep wound. The wound is very superficial. When she thinks about it she believes now that she may have been struck by the washer lid when she was closing and and suffered a glancing blow a few days ago. This would be a more likely etiology of the wound. Wound was cleansed and topical antibiotic bacitracin applied and a Band-Aid. Advised to do this for 3 days to make sure that the wound does not become secondarily infected. At this time it appears to be very superficial Departure - Departure Time of Disposition: 17:38 Disposition: Home, Self-Care 01 Condition: Fair Clinical Impression: Abrasion, Contusion of left forearm, initial encounter - Discharge Information *PRESCRIPTION DRUG MONITORING PROGRAM REVIEWED*: Not Applicable *COPY OF PRESCRIPTION DRUG MONITORING REPORT IN PATIENT BOBBY: Not Applicable Instructions: Contusion, [id number] Referrals: Nakia Grullon NP [Primary Care Provider] - Forms: ED Department Discharge Additional Instructions: Evaluation in the emergency room today in regards to contusion with localized bruising to the skin of the mid volar forearm on the left side. It appears that this is a pinched type injury and contusion of the soft tissue with bruising under the skin. There is no swelling or induration which means hardening in the wound to suggest an insect sting or bite. Suggest daily cleansing the area with soap and water and applying topical antibiotic for 2-3 days to make sure that it does not become infected.
== END 2019-02-23 17:50 | disposition home or self-care (01) ==
LOC: JD.ED 17:18
DX: S50.12XA Contusion of left forearm, initial encounter (principal); Z88.5 Allergy status to narcotic agent; Z91.018 Allergy to other foods; Z90.49 Acquired absence of other specified parts of digestive tract; F17.210 Nicotine dependence, cigarettes, uncomplicated; X58.XXXA Exposure to other specified factors, initial encounter
CPT/HCPCS: 99281

== ENCOUNTER 2021-10-31 11:31 | Emergency (ER) | payer MEDICAID ==
[2021-10-31 11:45] VITALS: BP 120/61; PULSE 86
== END 2021-10-31 13:52 | disposition home or self-care (01) ==
LOC: JD.ED 11:31
DX: N93.8 Other specified abnormal uterine and vaginal bleeding (principal); N92.0 Excessive and frequent menstruation with regular cycle; R79.1 Abnormal coagulation profile; Z91.030 Bee allergy status; Z88.5 Allergy status to narcotic agent; Z72.0 Tobacco use; Z91.018 Allergy to other foods; Z79.82 Long term (current) use of aspirin; Z79.01 Long term (current) use of anticoagulants
CPT/HCPCS: 36415; 80048; 81001; 84703; 85027; 85610; 99283; 99284

== ENCOUNTER 2022-03-01 18:14 | Emergency (ER) | payer MEDICAID ==
[2022-03-01 18:30] VITALS: BP 111/60; PULSE 84
[2022-03-01] MEDS ORDERED: HYDROmorphone 1 MG/ML Syringe IM ONE (18:42)
== END 2022-03-01 20:15 | disposition home or self-care (01) ==
LOC: JD.ED 18:14
DX: S93.401A Sprain of unspecified ligament of right ankle, initial encounter (principal); F17.210 Nicotine dependence, cigarettes, uncomplicated; F41.9 Anxiety disorder, unspecified; F32.A Depression, unspecified; Z79.899 Other long term (current) drug therapy; Z91.030 Bee allergy status; Z91.018 Allergy to other foods; Z88.5 Allergy status to narcotic agent; X50.9XXA Other and unspecified overexertion or strenuous movements or postures, initial encounter
CPT/HCPCS: 29515; 73610; 73630; 96372; 99283; J1170

== ENCOUNTER 2022-04-02 00:39 | Emergency (ER) | payer MEDICAID ==
[2022-04-02 01:08] VITALS: BP 128/94; PULSE 77
== END 2022-04-02 01:30 | disposition home or self-care (01) ==
LOC: JD.ED 00:39
DX: K04.7 Periapical abscess without sinus (principal); Z91.030 Bee allergy status; Z91.018 Allergy to other foods; Z88.6 Allergy status to analgesic agent; Z79.899 Other long term (current) drug therapy; Z79.82 Long term (current) use of aspirin; Z79.01 Long term (current) use of anticoagulants; Z86.16 Personal history of COVID-19; Z90.49 Acquired absence of other specified parts of digestive tract
CPT/HCPCS: 99282

== ENCOUNTER 2022-06-20 13:08 | Emergency (ER) | payer MEDICAID ==
[2022-06-20 16:46] VITALS: BP 135/88; PULSE 75
== END 2022-06-20 16:45 ==
LOC: JD.ED 13:08
DX: I63.9 Cerebral infarction, unspecified (principal); Z91.030 Bee allergy status; Z91.018 Allergy to other foods; Z88.6 Allergy status to analgesic agent; Z79.82 Long term (current) use of aspirin; Z79.01 Long term (current) use of anticoagulants; Z79.899 Other long term (current) drug therapy; Z86.16 Personal history of COVID-19; Z90.49 Acquired absence of other specified parts of digestive tract
CPT/HCPCS: 36415; 70450; 70450-26; 70496; 70496-26; 70498; 70498-26; 71045; 71045-26; 80053; 82947; 84484; 84703; 85025; 85610; 85730; 93005; 99285

== ENCOUNTER 2022-10-13 04:06 | Emergency (ER) | payer SELFPAY ==
[2022-10-13 04:28] VITALS: BP 126/90; PULSE 89
[2022-10-13] MEDS ORDERED: Haloperidol Lactate 5 MG/ML SDV IM ONE (04:50)
[2022-10-13] MEDS ORDERED: Sodium Chloride 0.9% 1,000 ML IV ONE (04:50)
== END 2022-10-13 06:57 | disposition home or self-care (01) ==
LOC: JD.ED 04:06
DX: G43.909 Migraine, unspecified, not intractable, without status migrainosus (principal); F17.210 Nicotine dependence, cigarettes, uncomplicated; Z91.030 Bee allergy status; Z91.018 Allergy to other foods; Z88.5 Allergy status to narcotic agent; Z79.82 Long term (current) use of aspirin; Z79.899 Other long term (current) drug therapy
CPT/HCPCS: 70450; 99283; J1630; J7030; 99282

== ENCOUNTER 2024-03-09 02:00 | Emergency (ER) | payer MEDICAID, OTHER ==
[2024-03-09 02:18] VITALS: BP 125/107; PULSE 88
== END 2024-03-09 03:21 | disposition home or self-care (01) ==
LOC: JD.ED 02:00
DX: K08.89 Other specified disorders of teeth and supporting structures (principal); Z86.16 Personal history of COVID-19; Z91.018 Allergy to other foods; Z90.49 Acquired absence of other specified parts of digestive tract; Z79.84 Long term (current) use of oral hypoglycemic drugs; Z79.899 Other long term (current) drug therapy; Z91.030 Bee allergy status; Z88.5 Allergy status to narcotic agent
CPT/HCPCS: 64400; 99282-25; 99283

== ENCOUNTER 2024-03-25 02:38 | Emergency (ER) | payer MEDICAID, OTHER ==
[2024-03-25 02:52] VITALS: BP 125/80; PULSE 70
[2024-03-25] MEDS: HYDROmorphone 1 MG/ML Syringe IM ONE (03:39)
[2024-03-25] MEDS: Prochlorperazine 10 MG/2 ML SDV IM ONE (03:39)
== END 2024-03-25 03:43 | disposition home or self-care (01) ==
LOC: JD.ED 02:38
DX: K04.7 Periapical abscess without sinus (principal); Z88.5 Allergy status to narcotic agent; Z91.030 Bee allergy status; Z91.018 Allergy to other foods; Z79.82 Long term (current) use of aspirin; Z79.899 Other long term (current) drug therapy; Z86.16 Personal history of COVID-19; Z90.49 Acquired absence of other specified parts of digestive tract
CPT/HCPCS: 96372; 99283; J0780; J1170

== ENCOUNTER 2024-11-17 18:57 | Emergency (ER) | payer MEDICAID ==
[2024-11-17] MEDS ORDERED: Sodium Chloride 0.9% 10 ML Syringe FLUSH PRN (19:49)
[2024-11-17 20:19] LABS: BASOPHILS PERCENT AUTO 0.3 % (0.0-1.0); EOSINOPHILS PERCENT AUTO 0.5 % (0.0-6.0); HEMATOCRIT 39.6 % (37.0-47.0); HEMOGLOBIN 13.1 gm/dl (12.0-16.0); IMMATURE GRAN ABSOLUTE AUTO 0.01 K/mm3 (0.00-0.05); IMMATURE GRAN PERCENT AUTO 0.2 % (0.0-0.4); LYMPHOCYTES ABSOLUTE AUTO 1.2 K/mm3 (1.0-4.8); MEAN CORPUSCULAR HEMOGLOBIN 28.9 pg (28.0-32.0); MEAN CORPUSCULAR HGB CONC 33.1 g/dl (32.0-36.0); MEAN CORPUSCULAR VOLUME 87.4 fl (83.0-99.0); MEAN PLATELET VOLUME 9.2 fl (9.4-12.3); MONOCYTES ABSOLUTE AUTO 0.7 K/mm3 (0.0-0.8); MONOCYTES PERCENT AUTO 11.8 % (0.0-8.0); NEUTROPHILS ABSOLUTE AUTO 4.2 K/mm3 (1.8-7.7); NEUTROPHILS PERCENT AUTO 68.2 % (41.0-71.0); PLATELET COUNT,PLT 220 K/mm3 (150-400); RED BLOOD CELL COUNT 4.53 M/mm3 (4.10-5.30); WHITE BLOOD CELL COUNT,WBC 6.09 K/mm3 (3.9-11.3)
[2024-11-17] MEDS: Ketorolac 30 MG/ML SDV IVPUSH ONE (20:22)
[2024-11-17] MEDS: Sodium Chloride 0.9% 1,000 ML IV ONE (20:22)
[2024-11-17 20:39] LABS: CORONAVIRUS COVID-19 NAA NEGATIVE (NEGATIVE); INFLUENZA A NAA POSITIVE (NEGATIVE); RESPIRATORY SYNCYTIAL VIR NAA NEGATIVE (NEGATIVE)
[2024-11-17 20:40] LABS: A/G RATIO 0.9 (1-2); ANION GAP 13.4 (5-15); BILIRUBIN TOTAL 0.2 mg/dL (0.2-1.0); BUN/CREATININE RATIO 31.4 (14-18); CALCIUM 7.9 mg/dL (8.5-10.1); CREATININE 0.7 mg/dL (0.55-1.02); EST CRCL DRUG DOSING (CG) 93.01 mL/min; POTASSIUM,K 3.4 mEq/L (3.5-5.1); PROTEIN TOTAL,TP 6.4 g/dl (6.4-8.2)
[2024-11-18 00:33] VITALS: BP 119/85; PULSE 80
== END 2024-11-18 00:32 | disposition home or self-care (01) ==
LOC: JD.ED 18:57
DX: J10.1 Influenza due to other identified influenza virus with other respiratory manifestations (principal); F17.210 Nicotine dependence, cigarettes, uncomplicated; Z91.030 Bee allergy status; Z91.018 Allergy to other foods; Z88.5 Allergy status to narcotic agent; Z79.82 Long term (current) use of aspirin; Z79.899 Other long term (current) drug therapy; Z86.16 Personal history of COVID-19
CPT/HCPCS: 0241U; 36415; 71045; 80053; 85025; 96361; 96374; 99284; J1885; J7030; 99283

== ENCOUNTER 2025-07-10 07:06 | Emergency (ER) | payer MEDICAID ==
[2025-07-10] MEDS ORDERED: Sodium Chloride 0.9% 10 ML Syringe FLUSH PRN (07:36)
[2025-07-10] MEDS: diphenhydrAMINE 50 MG/ML SDV IVPUSH ONE (07:56)
[2025-07-10] MEDS: droPERidol 2.5 MG/ML SDV IV ONE (07:57)
[2025-07-10 08:00] LABS: BASOPHILS ABSOLUTE AUTO 0.1 K/mm3 (0.0-0.2); BASOPHILS PERCENT AUTO 0.8 % (0.0-1.0); EOSINOPHILS ABSOLUTE AUTO 0.2 K/mm3 (0.0-0.4); EOSINOPHILS PERCENT AUTO 1.5 % (0.0-6.0); IMMATURE GRAN ABSOLUTE AUTO 0.05 K/mm3 (0.00-0.05); IMMATURE GRAN PERCENT AUTO 0.5 % (0.0-0.4); LYMPHOCYTES ABSOLUTE AUTO 1.7 K/mm3 (1.0-4.8); LYMPHOCYTES PERCENT AUTO 16.5 % (24.0-44.0); MEAN PLATELET VOLUME 9.2 fl (9.4-12.3); MONOCYTES ABSOLUTE AUTO 0.6 K/mm3 (0.0-0.8); MONOCYTES PERCENT AUTO 5.6 % (0.0-8.0); NEUTROPHILS ABSOLUTE AUTO 7.7 K/mm3 (1.8-7.7); NEUTROPHILS PERCENT AUTO 75.1 % (41.0-71.0); NRBC ABSOLUTE 0.00 (0.00-0.02); NRBC PERCENT 0.0 % (0.0-0.2); PLATELET COUNT,PLT 273 K/mm3 (150-400); RED BLOOD CELL COUNT 5.06 M/mm3 (4.10-5.30); WHITE BLOOD CELL COUNT,WBC 10.20 K/mm3 (3.9-11.3)
[2025-07-10] MEDS: Iopamidol 612 MG/ML 100 ML Bottle IVPUSH ONE (08:23)
[2025-07-10] MEDS: Sodium Chloride 0.9% 10 ML Syringe FLUSH PRN (08:23)
[2025-07-10 08:30] LABS: A/G RATIO 1.0 (1-2); ALANINE AMINOTRANSFERASE,ALT 28.0 U/L (14-59); ASPARTATE AMNIOTRANSFERASE,AST 20.0 U/L (15-37); BILIRUBIN TOTAL 0.2 mg/dL (0.2-1.0); BLOOD UREA NITROGEN,BUN 20.0 mg/dL (7-18); CARBON DIOXIDE,CO2 28.0 mEq/L (21-32); CHLORIDE,CL 106.0 mEq/L (98-107); CREATININE 0.8 mg/dL (0.55-1.02); EST CRCL DRUG DOSING (CG) 81.38 mL/min; ESTIMATED GFR 91.0 mL/min (>60); ETHANOL BLOOD MEDICAL 0.0 gm% (0.00); GLUCOSE RANDOM 110.0 mg/dL (70-99); POTASSIUM,K 4.1 mEq/L (3.5-5.1); PROTEIN TOTAL,TP 7.2 g/dl (6.4-8.2); SODIUM,NA 140.0 mEq/L (136-145)
[2025-07-10 10:13] LABS: APPEARANCE,URINE CLOUDY (Clear); GLUCOSE,URINE NEGATIVE (Negative); OCCULT BLOOD,URINE TRACE-INTACT (Negative)
[2025-07-10 10:31] LABS: BUPRENORPHINE SCREEN,URINE NEGATIVE (CUTOFF=10); METHADONE SCREEN, URINE NEGATIVE (CUTOFF=200); METHAMPHETAMINES SCREEN, URINE PRESUMPTIVE POSITIVE (CUTOFF=500); OXYCODONE SCREEN,URINE NEGATIVE (CUT0FF=100); THC SCREEN,URINE 20 NG/ML NEGATIVE (CUTOFF=50)
[2025-07-10 10:45] LABS: SQUAMOUS EPITHELIAL CELLS,UR 0-5 /hpf (0-5)
[2025-07-10 10:45] LABS: AMPHETAMINES SCREEN, URINE PRESUMPTIVE POSITIVE (CUTOFF=500)
[2025-07-10 12:31] VITALS: BP 125/89; PULSE 77
== END 2025-07-10 12:21 | disposition home or self-care (01) ==
LOC: JD.ED 07:06
DX: R51.9 Headache, unspecified (principal); R10.13 Epigastric pain; F17.200 Nicotine dependence, unspecified, uncomplicated; Z86.16 Personal history of COVID-19; Z79.82 Long term (current) use of aspirin; Z79.899 Other long term (current) drug therapy; Z91.030 Bee allergy status; Z91.018 Allergy to other foods; Z88.5 Allergy status to narcotic agent
CPT/HCPCS: 36415; 70450; 71045; 74177; 80053; 80306; 80307; 81001; 83690; 84703; 85025; 87428; 93005; 96374; 96375; 99284; J1200; J1790; J7030; Q9967; 93010

== ENCOUNTER 2025-08-04 07:09 | Emergency (ER) | payer MEDICAID ==
[2025-08-04] MEDS: Ketorolac 60 MG/2 ML SDV IM ONE (08:07)
[2025-08-04 10:21] VITALS: BP 126/84; PULSE 67
== END 2025-08-04 09:30 | disposition home or self-care (01) ==
LOC: JD.ED 07:09
DX: M54.50 Low back pain, unspecified (principal); G89.29 Other chronic pain; F17.200 Nicotine dependence, unspecified, uncomplicated; Z79.899 Other long term (current) drug therapy; Z88.8 Allergy status to other drugs, medicaments and biological substances; Z91.030 Bee allergy status; Z91.018 Allergy to other foods; Z86.16 Personal history of COVID-19; Z90.49 Acquired absence of other specified parts of digestive tract
CPT/HCPCS: 72100; 96372; 99283; A9270; J1171; J1885; 99284